=== PATIENT | female | born 1990 ===

== ENCOUNTER → 2016-07-13 | Outpatient (CLI) | payer BC | END | disposition home or self-care (01) | LOC: C.PAPS 12:17 | PROVIDERS: ATTEND Physician Assistant | DX: Z01.419 Encounter for gynecological examination (general) (routine) without abnormal findings (principal) ==

== ENCOUNTER 2020-08-01 07:23 | Inpatient (IN) ==
[2020-08-01] MEDS ORDERED: OXYTOCIN 30 UNITS/500 ML BAG IV PRN ×2 (09:36)
--- NOTE | 2020-08-01 09:47 | History & Physical Report ---
Date of Service August 01, 2020 Assessment & Plan (1) Encounter for induction of labor: Here for IOL secondary to IUGR. PNL: Rh pos, RI, GBS neg, COVID neg Admit, labs, start IV Epidural when desired; anesthesiology consult placed Cervical dilation with mora cath bulb. Proceed with induction of labor per Pitocin augmentation protocol. Anticipate (2) IUGR (intrauterine growth restriction): Admission and Anticipated Discharge Date Admission Date: August 01, 2020 History of Present Illness Primary Care Provider: Sascha Desouza PA-C Grisel Lopez is a 30 y/o female currently at 37+1 WGA with an TEA 08/21/20 as determined by LMP who is here for IOL due to IUGR. Her was complicated by IUGR (MFM reported 12%tile on 06/26) and obesity. No specific complaints or concerns this morning. + contractions; + movement; - fluid loss; - bloody show Had regular appointments with OB. Blood type: O+ Antibody screen: neg Labs 01/15/20 Rubella: immune VDRL/RPR: NR Gonorrhea: neg Chlamydia: neg HIV: neg HbSAg: neg GBS: neg 07/25/20 COVID-19 negative 07/26/20 Other screens: declined all genetic testing Allergies Allergy/AdvReac Type Severity Reaction Status Date / Time Sulfa (Sulfonamide Allergy Intermediate Hives Verified 08/01/20 09:51 Antibiotics) Home Medications Medication Instructions Recorded Confirmed Type prenat.vits,augustina,[id number] 1 tab PO DAILY 08/01/20 08/01/20 History [ Vitamin] Patient History Medical History Coccydynia Oligomenorrhea Radicular pain of sacrum Routine gynecological examination Sacral pain Surgical History H/O wisdom tooth extraction S/P tonsillectomy Family History Aunt Breast cancer Maternal Mother Diabetes Father Hypertension Brother Hypertension Grandmother (Maternal) Uterine cancer Denies family history of Ovarian cancer Prostate cancer Colorectal cancer Social History Smoking Status: Never smoker Hx Alcohol Use: No Hx Substance Use: No Preferred Language: Icelandic Communication Ability: Effective Beliefs That Will Affect Care: None marital status: marital status details: FOB: Ren (33) [phone] Current Living Situation: Spouse Current Living Situation Comment: Ren current occupational status: employed 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 Denies shortness of breath or cough. Denies chest pain. Denies breast pain. Denies dysuria or hematuria. Denies leg pain or leg swelling. Denies headache or changes in vision. Physical Exam Physical Exam: General: Alert, oriented. No acute distress. Cardiac: Regular rate and rhythm, no murmurs/rubs/gallops. Respiratory: Clear to auscultation bilaterally a/p, no wheezes/rales/rhonchi. No increased work of breathing. Symmetrical chest rise. No respiratory distress. Abdomen: Gravid. Vertex position. + heart tones. - palpable contractions. EFW 5-6# Pelvic: Dilation 1 cm; Effacement 50%; Station -[address] Parks External FHT and external uterine monitors used; Category I tracing; moderate FHT variability. Lower Extremities: No lower extremity edema or swelling. No deep calf pain. Satish's negative bilaterally Results & Data ([facility]) Vital Signs (Past 12 Hours) Vital Signs Temp Pulse Resp BP 08/01/20 07:40 36.8 C 20 08/01/20 07:36 84 122/78 Supervising Physician Co-Signing Physician Notes Resident Physician Supervision Note: I interviewed and examined the patient. Discussed with Dr. Lorenz and agree with findings and plan as documented in the note. Any exceptions or clarifications are listed here: 30 y/o G1 at 37 1/7 wga presents for IOL for FGR w/ elevated dopplers. Was first dx with FGR at growth at 31 wks w/ elevated doppler. Subsequent MFM c/s and US demonstrated growth in the 12th%ile. [place] [facility] [place]FW 6% w/ elevated dopplers at 36 wks. Given the elevated dopplers in the setting of FGR, recommendation was for delivery at 37 wks. She then had DVP doppler here that were normal for f/u. M was contacted yesterday due to planned IOL but most recent doppler being normal. They discussed reasonable to proceed with IOL at 37 wks given the known previous abnl dopplers and different sonographers or monitoring next doppler and delivery at that point, and could discuss w/ pt both options. This was discussed w/ pt and she opted for continued IOL. Today, +FM and intermittent ctx. Denies LOF, VB. VSS, SVE /-3 cephalic by sutures. IOL begun with 40 cc mora bulb placement after verbal consent was obtained including risk for AROM. Will start pitocin as well Documented By: Tami Parks MD Resident Activity Tracking Resident Involvement: Resident Care Provided Care Provided: OB Delivery
[2020-08-01 10:05] LABS: Hematocrit (blood only) 37.8 % (37-47); Hemoglobin 13.2 g/dL (12.0-16.0); Mean Corpuscular Hemoglobin 32.2 pg (25-34); Mean Corpuscular Hgb Conc 34.9 g/dL (32-36); Mean Corpuscular Volume 92.2 fL (80-100); Mean Platelet Volume 11.1 fL (7.4-10.4); Platelet Count 210 K/uL (130-400); RDW Standard Deviation 43.6 fL (36.4-46.3); White Blood Count 12.08 K/uL (4.8-10.8)
[2020-08-01] MEDS: LACTATED RINGER'S 1,000 ML IV PRN ×3 (10:08→23:25)
--- NOTE | 2020-08-01 14:23 | Labor Progress Brief Note ---
Date of Service August 01, 2020 Subjective Mora bulb out, pt feeling uncomfortable w/ ctx Assessment & Plan (1) IUGR (intrauterine growth restriction): 30 y/o G1 at 37 1/7 wga presents for IOL for FGR w/ elevated dopplers VSS Fetus cat 1 Labor - s/p mora bulb. Will titrate pit, plan AROM when regular ctx GBS neg Epidural PRN Admission and Anticipated Discharge Date Admission Date: August 01, 2020 Physical Exam Constitutional: WD/WN, vitals as above Respiratory: normal respiratory effort; no respiratory distress and no labored breathing Psychiatric: A+Ox3, euthymic affect Genitourinary: Manual OB Exam: + cervical dilation 3 cm, + cervical effacement 70% and + station high OB Exam Monitor Tracing: + external FHT monitor used, + external uterine monitor used (q3-4 min) and + category I (135/mod/+accel/- decel) Results & Data ([facility]) Vital Signs (Past 12 Hours) Vital Signs Temp Pulse Resp BP 08/01/20 14:18 90 121/83 08/01/20 13:17 98.2 F 73 20 127/75 08/01/20 12:15 71 113/82 08/01/20 11:09 74 103/62 08/01/20 10:08 98.1 F 58 L 20 143/91 H 08/01/20 07:40 98.2 F 20 08/01/20 07:36 84 122/78 Coding Level of Care Code None Diagnoses IUGR (intrauterine growth restriction)
--- NOTE | 2020-08-01 16:33 | Labor Progress Brief Note ---
Date of Service August 01, 2020 Subjective Ctx more uncomfortable Assessment & Plan (1) IUGR (intrauterine growth restriction): 30 y/o G1 at 37 1/7 wga presents for IOL for FGR w/ elevated dopplers VSS Fetus cat 1 Labor - Pit at 14 w/ good ctx pattern, now s/p arom. Continue augmentation GBS neg Epidural PRN Admission and Anticipated Discharge Date Admission Date: August 01, 2020 Physical Exam Constitutional: WD/WN, vitals as above Respiratory: normal respiratory effort; no respiratory distress and no labored breathing Psychiatric: A+Ox3, euthymic affect Genitourinary: Manual OB Exam: + cervical dilation 4 cm, + cervical effacement 70%, + station -2 and + amniotic fluid (AROM clear fluid) OB Exam Monitor Tracing: + external FHT monitor used, + external uterine monitor used (q3) and + category I (140/mod/+accel/-decel) Results & Data ([facility]) Vital Signs (Past 12 Hours) Vital Signs Temp Pulse Resp BP 08/01/20 16:08 97.9 F 76 20 120/73 08/01/20 15:21 84 140/87 08/01/20 14:18 90 121/83 08/01/20 13:17 98.2 F 73 20 127/75 08/01/20 12:15 71 113/82 08/01/20 11:09 74 103/62 08/01/20 10:08 98.1 F 58 L 20 143/91 H 08/01/20 07:40 98.2 F 20 08/01/20 07:36 84 122/78 Coding Level of Care Code None Diagnoses IUGR (intrauterine growth restriction)
[2020-08-01] MEDS ORDERED: diphenhydrAMINE 50 MG/ML VIAL IV PRN (17:56)
[2020-08-01] MEDS ORDERED: NALOXONE HCL 0.4 MG/1 ML VIAL/CARP IV PRN (17:56)
[2020-08-01] MEDS ORDERED: ePHEDrine sulfate 50 MG/ML AMP IV PRN (17:56)
[2020-08-01] MEDS ORDERED: ONDANSETRON INJ 2 MG/ML 2 ML VIAL IV PRN (17:56)
[2020-08-01] MEDS ORDERED: NALOXONE HCL 1 MG in SODIUM CHLORIDE 0.9% 1000ML 1,000 ML IV PRN (17:56)
[2020-08-01] MEDS ORDERED: BUPIVACAINE 0.25% 30 ML VIAL ONE ×2 (17:57→19:39)
[2020-08-01] MEDS ORDERED: ePHEDrine sulfate 50 MG/ML AMP ONE (17:57)
[2020-08-01] MEDS ORDERED: fentaNYL citrate 100 MCG/2 ML VIAL ONE (17:58)
[2020-08-01] MEDS ORDERED: fentaNYL 2MCG/ML ROPIVACAINE 1.25MG/ML 100 ML BAG EPI ONE (17:58)
--- NOTE | 2020-08-01 17:59 | Anesthesiology Consultation ---
Date of Service August 01, 2020 Assessment & Plan (1) Encounter for pre-operative examination: Chart Review Chart Review: Patient NOT seen in Pre Admission Testing and Acceptable Risk for Labor Epidural Consults Requested none History Height/Weight Height: 5 ft 3 in Weight: 98.883 kg Allergies Allergy/AdvReac Type Severity Reaction Status Date / Time Sulfa (Sulfonamide Allergy Intermediate Hives Verified 08/01/20 09:51 Antibiotics) Medications Home Medications Medication Instructions Recorded Confirmed Last Taken prenat.vits,augustina,ixp-[id number] 1 tab PO DAILY 08/01/20 08/01/20 08/01/20 06:00 [ Vitamin] Active Medications Generic Name Dose Route Start Last Admin Trade Name Freq PRN Reason Stop Dose Admin Oxytocin 30 units in 500 mls @ 14 mls/hr 08/01/20 09:36 08/01/20 15:45 Pitocin IV 08/03/20 09:35 0.84 units/hr .Q24H PRN 14 mls/hr Labor Induction/Augmentation Titration Protocol 0.84 UNITS/HR Lactated Ringer's 1,000 mls @ 125 mls/hr 08/01/20 09:36 08/01/20 17:55 Lr IV 08/03/20 09:35 999 mls/hr .Q8H PRN Infusion L&D Protocol Protocol Past Medical History Medical History Coccydynia Oligomenorrhea Radicular pain of sacrum Routine gynecological examination Sacral pain Exercise / Class Metabolic Activity II 4-5 Yardwork/Stairs/Walk up hill Past Family History Family History Aunt Breast cancer Maternal Mother Diabetes Father Hypertension Brother Hypertension Grandmother (Maternal) Uterine cancer Denies family history of Ovarian cancer Prostate cancer Colorectal cancer Past Surgical History Surgical History H/O wisdom tooth extraction S/P tonsillectomy Past Anesthesia History No Hx of Anesthesia Complications and No Family Hx of Anesthesia Complications History of PONV No Hx of PONV and No Hx of Motion Sickness Social History Smoking Status: Never smoker Hx Alcohol Use: No Hx Substance Use: No Physical Exam Vital Signs Last Vital Signs Temp 36.6 C 08/01/20 16:08 Pulse 71 08/01/20 17:52 Resp 20 08/01/20 16:08 BP 136/73 08/01/20 17:51 Pulse Ox 100 08/01/20 17:52 Testing Laboratory Results 08/01/20 09:53
--- NOTE | 2020-08-01 21:56 | Labor Progress Brief Note ---
Date of Service August 01, 2020 Subjective Comfortable w/ epidural Assessment & Plan (1) IUGR (intrauterine growth restriction): 30 y/o G1 at 37 1/7 wga presents for IOL for FGR w/ elevated dopplers VSS Fetus cat 2 Labor - Pit at 20 w/ good ctx pattern, SVE progressed on exam by nursing. Will put IUPC if not progressed with next exam GBS neg Epidural in place, now comfortable Admission and Anticipated Discharge Date Admission Date: August 01, 2020 Physical Exam Constitutional: WD/WN, vitals as above Respiratory: normal respiratory effort; no respiratory distress and no labored breathing Psychiatric: A+Ox3, euthymic affect Genitourinary: OB Exam Monitor Tracing: + external FHT monitor used, + external uterine monitor used (q3-4min) and + category I (130/mod/+accel/intermittent variable decel) 6/80/-2 by nursing Results & Data ([facility]) Vital Signs (Past 12 Hours) Vital Signs Temp Pulse Resp BP Pulse Ox 08/01/20 21:47 71 98 08/01/20 21:44 79 132/78 08/01/20 21:42 77 100 08/01/20 21:39 79 132/72 08/01/20 21:37 68 100 08/01/20 21:33 83 126/64 08/01/20 21:32 85 100 08/01/20 21:28 86 127/67 08/01/20 21:27 69 100 08/01/20 21:24 85 131/70 08/01/20 21:22 82 100 08/01/20 21:20 67 137/68 08/01/20 21:17 71 99 08/01/20 21:13 63 117/64 08/01/20 21:12 65 98 08/01/20 21:09 65 113/63 08/01/20 21:07 73 97 08/01/20 21:04 71 116/62 08/01/20 21:02 76 99 08/01/20 21:00 98.2 F 64 116/66 08/01/20 20:57 74 98 08/01/20 20:54 73 115/64 08/01/20 20:52 70 98 08/01/20 20:50 63 116/62 08/01/20 20:47 62 99 08/01/20 20:45 61 124/59 L 08/01/20 20:42 67 98 08/01/20 20:38 71 123/67 08/01/20 20:37 73 99 08/01/20 20:35 71 127/68 08/01/20 20:32 68 99 08/01/20 20:28 81 124/67 08/01/20 20:27 72 99 08/01/20 20:24 61 120/62 08/01/20 20:22 82 100 08/01/20 20:18 76 124/61 08/01/20 20:17 76 100 08/01/20 20:13 75 120/63 08/01/20 20:12 75 100 08/01/20 20:08 80 120/63 08/01/20 20:07 77 100 08/01/20 20:04 77 115/66 08/01/20 20:02 74 100 08/01/20 19:57 81 131/72 99 08/01/20 19:55 68 124/71 08/01/20 19:53 82 126/77 08/01/20 19:52 71 99 08/01/20 19:51 74 120/74 08/01/20 19:50 81 119/75 08/01/20 19:47 61 131/66 98 08/01/20 19:45 60 121/69 08/01/20 19:43 76 120/68 08/01/20 19:42 88 96 08/01/20 19:37 61 98 08/01/20 19:32 63 97 08/01/20 19:28 60 112/64 08/01/20 19:27 72 98 08/01/20 19:22 67 94 08/01/20 19:21 72 94 08/01/20 19:17 58 L 96 08/01/20 19:12 71 115/64 99 08/01/20 19:07 100 H 99 08/01/20 19:06 98.1 F 88 18 130/71 08/01/20 19:02 76 99 08/01/20 19:01 85 124/71 08/01/20 18:57 69 98 08/01/20 18:56 86 127/69 08/01/20 18:52 79 98 08/01/20 18:51 92 H 126/71 08/01/20 18:47 99 H 98 08/01/20 18:46 89 131/74 08/01/20 18:42 85 123/76 98 08/01/20 18:37 76 100 08/01/20 18:36 96 H 137/85 08/01/20 18:34 96 H 132/82 08/01/20 18:32 100 H 129/79 98 08/01/20 18:30 95 H 131/79 08/01/20 18:28 95 H 138/84 08/01/20 18:27 89 100 08/01/20 18:26 93 H 134/79 08/01/20 18:25 20 08/01/20 18:24 86 130/69 08/01/20 18:22 81 132/75 100 08/01/20 18:20 80 130/73 08/01/20 18:18 82 128/77 08/01/20 18:17 84 99 08/01/20 18:16 73 130/75 08/01/20 18:13 80 124/73 08/01/20 18:12 89 99 08/01/20 18:10 98.1 F 20 08/01/20 18:07 94 H 100 08/01/20 18:02 87 99 08/01/20 17:57 75 98 08/01/20 17:52 71 100 08/01/20 17:51 71 136/73 08/01/20 16:08 97.9 F 76 20 120/73 08/01/20 15:21 84 140/87 08/01/20 14:18 90 121/83 08/01/20 13:17 98.2 F 73 20 127/75 08/01/20 12:15 71 113/82 08/01/20 11:09 74 103/62 08/01/20 10:08 98.1 F 58 L 20 143/91 H Coding Level of Care Code None Diagnoses IUGR (intrauterine growth restriction)
[2020-08-01] MEDS ORDERED: LIDOCAINE/EPINEPHRINE 2% 1:200,000 20 ML SDV ONE (23:09)
[2020-08-01] MEDS ORDERED: ROPIVACAINE 0.5% 5 MG/ML 30 ML VIAL ONE (23:09)
--- NOTE | 2020-08-01 23:16 | Labor Progress Brief Note ---
Date of Service August 01, 2020 Subjective More uncomfortable lying on back, pit at 20 Assessment & Plan (1) IUGR (intrauterine growth restriction): 30 y/o G1 at 37 1/7 wga presents for IOL for FGR w/ elevated dopplers VSS Fetus cat 2 but reassuring Labor - Pit at 20 w/ good ctx pattern, cervix 5/75/-2 on my exam. IUPC placed to titrate pitocin GBS neg Epidural in place, anesthesia called to try to get patient more comfortable Admission and Anticipated Discharge Date Admission Date: August 01, 2020 Physical Exam Constitutional: WD/WN, vitals as above Respiratory: normal respiratory effort; no respiratory distress and no labored breathing Psychiatric: A+Ox3, euthymic affect Genitourinary: Manual OB Exam: + cervical dilation 5 cm, + cervical effacement 70% and + station -2 OB Exam Monitor Tracing: + external FHT monitor used, + external uterine monitor used (q3-4min) and + category I (130/mod/+accel/intermittent variable decel) Results & Data ([facility]) Vital Signs (Past 12 Hours) Vital Signs Temp Pulse Resp BP Pulse Ox 08/01/20 23:12 86 124/71 08/01/20 23:08 72 105/71 100 08/01/20 23:04 96 H 99/71 L 08/01/20 23:02 72 100 08/01/20 23:00 98.2 F 18 08/01/20 22:59 89 125/77 08/01/20 22:57 75 100 08/01/20 22:52 99 H 98 08/01/20 22:49 82 134/75 08/01/20 22:47 74 98 08/01/20 22:43 83 134/72 08/01/20 22:42 73 98 08/01/20 22:38 77 130/75 08/01/20 22:37 73 99 08/01/20 22:33 70 125/76 08/01/20 22:32 65 99 08/01/20 22:28 70 127/80 08/01/20 22:27 71 99 08/01/20 22:25 85 131/78 08/01/20 22:22 64 98 08/01/20 22:19 77 124/71 08/01/20 22:17 67 99 04/22/21 22:14 75 129/75 08/01/20 22:12 76 99 08/01/20 22:09 72 131/75 08/01/20 22:07 69 98 08/01/20 22:04 90 127/73 08/01/20 22:02 81 98 21 21:59 81 136/75 08/01/20 21:57 70 99 08/01/20 21:54 73 134/72 08/01/20 21:52 64 98 08/01/20 21:50 61 119/69 08/01/20 21:47 71 98 08/01/20 21:44 79 132/78 08/01/20 21:42 77 100 08/01/20 21:39 79 132/72 08/01/20 21:37 68 100 08/01/20 21:33 83 126/64 08/01/20 21:32 85 100 08/01/20 21:28 86 127/67 08/01/20 21:27 69 100 08/01/20 21:24 85 131/70 08/01/20 21:22 82 100 08/01/20 21:20 67 137/68 08/01/20 21:17 71 99 08/01/20 21:13 63 117/64 08/01/20 21:12 65 98 08/01/20 21:09 65 113/63 08/01/20 21:07 73 97 08/01/20 21:04 71 116/62 08/01/20 21:02 76 99 08/01/20 21:00 98.2 F 64 116/66 08/01/20 20:57 74 98 08/01/20 20:54 73 115/64 21 20:52 70 98 21 20:50 63 116/62 21 20:47 62 99 22/21 20:45 61 124/59 L 2221 20:42 67 98 2221 20:38 71 123/67 2221 20:37 73 99 2221 20:35 71 127/68 22/21 20:32 68 99 22/21 20:28 81 124/67 22/21 20:27 72 99 2221 20:24 61 120/62 22/21 20:22 82 100 08/01/20 20:18 76 124/61 08/01/20 20:17 76 100 08/01/20 20:13 75 120/63 08/01/20 20:12 75 100 08/01/20 20:08 80 120/63 08/01/20 20:07 77 100 08/01/20 20:04 77 115/66 08/01/20 20:02 74 100 08/01/20 19:57 81 131/72 99 08/01/20 19:55 68 124/71 08/01/20 19:53 82 126/77 08/01/20 19:52 71 99 08/01/20 19:51 74 120/74 08/01/20 19:50 81 119/75 08/01/20 19:47 61 131/66 98 08/01/20 19:45 60 121/69 08/01/20 19:43 76 120/68 08/01/20 19:42 88 96 08/01/20 19:37 61 98 08/01/20 19:32 63 97 08/01/20 19:28 60 112/64 08/01/20 19:27 72 98 08/01/20 19:22 67 94 08/01/20 19:21 72 94 08/01/20 19:17 58 L 96 08/01/20 19:12 71 115/64 99 08/01/20 19:07 100 H 99 08/01/20 19:06 98.1 F 88 18 130/71 08/01/20 19:02 76 99 08/01/20 19:01 85 124/71 08/01/20 18:57 69 98 08/01/20 18:56 86 127/69 08/01/20 18:52 79 98 08/01/20 18:51 92 H 126/71 08/01/20 18:47 99 H 98 08/01/20 18:46 89 131/74 08/01/20 18:42 85 123/76 98 08/01/20 18:37 76 100 08/01/20 18:36 96 H 137/85 08/01/20 18:34 96 H 132/82 08/01/20 18:32 100 H 129/79 98 08/01/20 18:30 95 H 131/79 08/01/20 18:28 95 H 138/84 08/01/20 18:27 89 100 08/01/20 18:26 93 H 134/79 08/01/20 18:25 20 08/01/20 18:24 86 130/69 08/01/20 18:22 81 132/75 100 08/01/20 18:20 80 130/73 08/01/20 18:18 82 128/77 08/01/20 18:17 84 99 08/01/20 18:16 73 130/75 08/01/20 18:13 80 124/73 08/01/20 18:12 89 99 08/01/20 18:10 98.1 F 20 08/01/20 18:07 94 H 100 08/01/20 18:02 87 99 08/01/20 17:57 75 98 08/01/20 17:52 71 100 08/01/20 17:51 71 136/73 08/01/20 16:08 97.9 F 76 20 120/73 08/01/20 15:21 84 140/87 08/01/20 14:18 90 121/83 08/01/20 13:17 98.2 F 73 20 127/75 08/01/20 12:15 71 113/82 Coding Level of Care Code None Diagnoses IUGR (intrauterine growth restriction)
[2020-08-01] MEDS ORDERED: NURSING L&D Epidural Breakthrough Pain Update ONE (23:57)
[2020-08-02] MEDS: fentaNYL 2MCG/ML ROPIVACAINE 1.25MG/ML 100 ML BAG EPI PRN ×3 (01:20→11:58)
--- NOTE | 2020-08-02 01:34 | Labor Progress Brief Note ---
Date of Service August 02, 2020 Subjective Much more comfortable w/ epidural rebolus Assessment & Plan (1) IUGR (intrauterine growth restriction): 30 y/o G1 at 37 2/7 wga presents for IOL for FGR w/ elevated dopplers VSS Fetus cat 2 but reassuring Labor - Pit at 20 w/ adequate ctx. Slightly lower station. Will give pit break and restart after 1 hr GBS neg Epidural in place Admission and Anticipated Discharge Date Admission Date: August 01, 2020 Physical Exam Constitutional: WD/WN, vitals as above Respiratory: normal respiratory effort; no respiratory distress and no labored breathing Psychiatric: A+Ox3, euthymic affect Genitourinary: Manual OB Exam: + cervical dilation 5 cm, + cervical effacement 70% and + station -1 OB Exam Monitor Tracing: + external FHT monitor used, + external uterine monitor used (q3-4min) and + category II (130/mod/+accel/intermit variables) Results & Data ([facility]) Vital Signs (Past 12 Hours) Vital Signs Temp Pulse Resp BP Pulse Ox 08/02/20 01:28 103 H 96 08/02/20 01:24 96 H 125/75 08/02/20 01:23 100 H 97 08/02/20 01:18 92 H 97 08/02/20 01:13 106 H 98 08/02/20 01:10 90 128/78 08/02/20 01:08 94 H 97 08/02/20 01:03 90 97 08/02/20 00:58 100 H 98 08/02/20 00:55 87 119/71 08/02/20 00:53 87 96 08/02/20 00:48 84 96 08/02/20 00:43 80 97 08/02/20 00:39 96 H 127/68 08/02/20 00:38 98 H 97 08/02/20 00:33 80 96 08/02/20 00:28 84 96 08/02/20 00:24 85 124/66 08/02/20 00:23 88 97 08/02/20 00:18 93 H 124/67 97 08/02/20 00:13 96 H 125/72 98 08/02/20 00:09 96 H 126/70 08/02/20 00:08 87 98 08/02/20 00:04 90 126/66 08/02/20 00:03 100 H 97 08/01/20 23:58 107 H 129/76 98 08/01/20 23:53 108 H 105/55 L 100 08/01/20 23:51 95 H 108/55 L 08/01/20 23:49 94 H 115/58 L 08/01/20 23:48 86 100 08/01/20 23:47 92 H 116/59 L 08/01/20 23:45 82 112/55 L 08/01/20 23:43 88 107/59 L 100 08/01/20 23:41 99 H 110/59 L 08/01/20 23:39 83 116/62 08/01/20 23:38 88 100 08/01/20 23:37 88 119/61 08/01/20 23:35 91 H 105/58 L 08/01/20 23:33 85 101/56 L 99 08/01/20 23:31 84 110/57 L 08/01/20 23:29 88 111/58 L 08/01/20 23:28 89 100 08/01/20 23:27 86 109/55 L 08/01/20 23:25 72 115/58 L 08/01/20 23:23 76 120/73 98 08/01/20 23:21 75 123/74 08/01/20 23:19 72 115/69 08/01/20 23:18 85 98 08/01/20 23:17 69 118/72 08/01/20 23:15 67 120/71 08/01/20 23:13 84 123/71 100 08/01/20 23:12 86 124/71 08/01/20 23:08 72 105/71 100 08/01/20 23:04 96 H 99/71 L 08/01/20 23:02 72 100 08/01/20 23:00 98.2 F 18 08/01/20 22:59 89 125/77 08/01/20 22:57 75 100 08/01/20 22:52 99 H 98 08/01/20 22:49 82 134/75 08/01/20 22:47 74 98 08/01/20 22:43 83 134/72 08/01/20 22:42 73 98 08/01/20 22:38 77 130/75 08/01/20 22:37 73 99 08/01/20 22:33 70 125/76 08/01/20 22:32 65 99 08/01/20 22:28 70 127/80 08/01/20 22:27 71 99 08/01/20 22:25 85 131/78 08/01/20 22:22 64 98 08/01/20 22:19 77 124/71 08/01/20 22:17 67 99 08/01/20 22:14 75 129/75 08/01/20 22:12 76 99 08/01/20 22:09 72 131/75 08/01/20 22:07 69 98 08/01/20 22:04 90 127/73 08/01/20 22:02 81 98 08/01/20 21:59 81 136/75 08/01/20 21:57 70 99 08/01/20 21:54 73 134/72 08/01/20 21:52 64 98 08/01/20 21:50 61 119/69 08/01/20 21:47 71 98 08/01/20 21:44 79 132/78 08/01/20 21:42 77 100 08/01/20 21:39 79 132/72 08/01/20 21:37 68 100 08/01/20 21:33 83 126/64 08/01/20 21:32 85 100 08/01/20 21:28 86 127/67 08/01/20 21:27 69 100 08/01/20 21:24 85 131/70 08/01/20 21:22 82 100 08/01/20 21:20 67 137/68 08/01/20 21:17 71 99 08/01/20 21:13 63 117/64 2221 21:12 65 98 22 21:09 65 113/63 08/01/20 21:07 73 97 22 21:04 71 116/62 22 21:02 76 99 08/01/20 21:00 98.2 F 64 116/66 2221 20:57 74 98 2221 20:54 73 115/64 2221 20:52 70 98 2221 20:50 63 116/62 2221 20:47 62 99 2221 20:45 61 124/59 L 08/01/20 20:42 67 98 08/01/20 20:38 71 123/67 08/01/20 20:37 73 99 08/01/20 20:35 71 127/68 08/01/20 20:32 68 99 08/01/20 20:28 81 124/67 08/01/20 20:27 72 99 08/01/20 20:24 61 120/62 08/01/20 20:22 82 100 08/01/20 20:18 76 124/61 08/01/20 20:17 76 100 08/01/20 20:13 75 120/63 08/01/20 20:12 75 100 08/01/20 20:08 80 120/63 08/01/20 20:07 77 100 08/01/20 20:04 77 115/66 08/01/20 20:02 74 100 08/01/20 19:57 81 131/72 99 08/01/20 19:55 68 124/71 08/01/20 19:53 82 126/77 08/01/20 19:52 71 99 08/01/20 19:51 74 120/74 08/01/20 19:50 81 119/75 08/01/20 19:47 61 131/66 98 08/01/20 19:45 60 121/69 08/01/20 19:43 76 120/68 08/01/20 19:42 88 96 08/01/20 19:37 61 98 08/01/20 19:32 63 97 08/01/20 19:28 60 112/64 08/01/20 19:27 72 98 08/01/20 19:22 67 94 08/01/20 19:21 72 94 08/01/20 19:17 58 L 96 08/01/20 19:12 71 115/64 99 08/01/20 19:07 100 H 99 08/01/20 19:06 98.1 F 88 18 130/71 08/01/20 19:02 76 99 08/01/20 19:01 85 124/71 08/01/20 18:57 69 98 08/01/20 18:56 86 127/69 08/01/20 18:52 79 98 08/01/20 18:51 92 H 126/71 08/01/20 18:47 99 H 98 08/01/20 18:46 89 131/74 08/01/20 18:42 85 123/76 98 08/01/20 18:37 76 100 08/01/20 18:36 96 H 137/85 08/01/20 18:34 96 H 132/82 08/01/20 18:32 100 H 129/79 98 08/01/20 18:30 95 H 131/79 08/01/20 18:28 95 H 138/84 08/01/20 18:27 89 100 08/01/20 18:26 93 H 134/79 08/01/20 18:25 20 08/01/20 18:24 86 130/69 08/01/20 18:22 81 132/75 100 08/01/20 18:20 80 130/73 08/01/20 18:18 82 128/77 08/01/20 18:17 84 99 08/01/20 18:16 73 130/75 08/01/20 18:13 80 124/73 08/01/20 18:12 89 99 08/01/20 18:10 98.1 F 20 08/01/20 18:07 94 H 100 08/01/20 18:02 87 99 08/01/20 17:57 75 98 08/01/20 17:52 71 100 08/01/20 17:51 71 136/73 08/01/20 16:08 97.9 F 76 20 120/73 08/01/20 15:21 84 140/87 08/01/20 14:18 90 121/83 Coding Level of Care Code None Diagnoses IUGR (intrauterine growth restriction)
--- NOTE | 2020-08-02 05:22 | Communication Note ---
Date of Service: August 02, 2020 Placed initial epidural around 1800 on 08/01/20. Patient c/o slight right sided pain not long after epidural placement so put her right side down and bolused additional 6ml of 0.25% bupivicaine with good relief. Around midnight, called as patient having increasing pain and again endorsed it being somewhat right sided. Pulled epidural catheter back 1-2cm and resecured. Wanted to ensure epidural was working and also wanted her to get some rest so bolused a total of 8ml of 1% lidocaine with 0.25% ropivicaine. Patient became very numb and was able to sleep until 0500. Around this time, she again c/o increasing pain. She was again bolused with the previous mentioned lido/rop mix but a total volume of 10ml. Informed patient that we would likely not continue to bolus her at such short intervals so if she continues to make very slow change and it seems likely that she will be laboring for quite some time that we would consider replacing the epidural to see if maybe we can obtain better pain relief for her. She voiced understanding and upon leaving her room she stated both legs were feeling very heavy and her pain was decreasing. VSS. No complications.
[2020-08-02] MEDS ORDERED: fentaNYL 2MCG/ML ROPIVACAINE 1.25MG/ML 100 ML BAG EPI ONE ×2 (06:11→11:45)
[2020-08-02] MEDS ORDERED: SODIUM CHLORIDE 0.9% INJ 10 ML VIAL ONE ×2 (06:11→11:44)
[2020-08-02] MEDS ORDERED: ePHEDrine sulfate 50 MG/ML AMP ONE ×2 (06:11→11:44)
[2020-08-02] MEDS ORDERED: fentaNYL citrate 100 MCG/2 ML VIAL ONE ×3 (06:11→11:44)
[2020-08-02] MEDS ORDERED: BUPIVACAINE 0.25% 30 ML VIAL ONE ×2 (06:11→11:44)
--- NOTE | 2020-08-02 06:53 | Communication Note ---
Date of Service: August 02, 2020 Replaced patient's epidural at 0630 this morning. Easy placement and patient very comfortable (not feeling her contractions) and satisfied. No complications.
--- NOTE | 2020-08-02 07:02 | Labor Progress Brief Note ---
Date of Service August 02, 2020 Subjective Epidural redone and pt much more comfortable Assessment & Plan (1) IUGR (intrauterine growth restriction): 30 y/o G1 at 37 2/7 wga presents for IOL for FGR w/ elevated dopplers VSS Fetus cat 2 but reassuring Labor - Pit at 12 now after break, MVUs not yet adequate. Able to go up more now that pt is more comfortable w/ new epidural GBS neg Epidural in place Admission and Anticipated Discharge Date Admission Date: August 01, 2020 Physical Exam Constitutional: WD/WN, vitals as above Respiratory: normal respiratory effort; no respiratory distress and no labored breathing Psychiatric: A+Ox3, euthymic affect Genitourinary: Manual OB Exam: + cervical dilation 5 cm, + cervical effacement 70% and + station -1 OB Exam Monitor Tracing: + external FHT monitor used, + intra-uterine pressure catheter used (q5min, MVUs not adequate) and + category II (130/mod/+accel/intermit variables) Results & Data ([facility]) Vital Signs (Past 12 Hours) Vital Signs Temp Pulse Resp BP Pulse Ox 08/02/20 06:58 88 97 08/02/20 06:56 89 120/64 08/02/20 06:53 92 H 98 08/02/20 06:48 86 108/57 L 98 08/02/20 06:46 85 108/57 L 08/02/20 06:44 89 111/56 L 08/02/20 06:43 93 H 98 08/02/20 06:42 91 H 110/56 L 08/02/20 06:40 85 108/58 L 08/02/20 06:38 81 110/60 98 08/02/20 06:36 82 112/64 08/02/20 06:34 75 119/67 08/02/20 06:33 94 H 99 08/02/20 06:32 85 126/71 08/02/20 06:28 93 H 99 08/02/20 06:23 95 H 99 08/02/20 06:21 91 H 131/69 93 08/02/20 06:18 87 98 08/02/20 06:13 97 H 97 08/02/20 06:10 82 94 08/02/20 06:08 95 H 99 08/02/20 06:06 87 133/71 08/02/20 06:03 97 H 97 08/02/20 05:58 79 95 08/02/20 05:54 81 94 08/02/20 05:53 89 99 08/02/20 05:50 96 H 130/80 08/02/20 05:48 81 95 08/02/20 05:47 81 93 08/02/20 05:43 87 94 08/02/20 05:40 84 94 08/02/20 05:38 89 96 08/02/20 05:36 85 128/77 08/02/20 05:33 80 98 08/02/20 05:29 92 H 94 08/02/20 05:28 98 H 97 08/02/20 05:23 81 93 08/02/20 05:20 98.2 F 08/02/20 05:18 84 134/79 100 08/02/20 05:16 87 134/81 08/02/20 05:14 82 129/76 08/02/20 05:13 79 99 08/02/20 05:12 77 134/80 08/02/20 05:10 139/85 08/02/20 05:08 85 135/82 100 08/02/20 05:06 87 133/80 08/02/20 05:04 85 130/80 08/02/20 05:03 91 H 99 08/02/20 04:58 81 97 08/02/20 04:56 78 133/78 08/02/20 04:53 78 98 08/02/20 04:48 83 99 08/02/20 04:43 88 100 08/02/20 04:39 91 H 119/67 08/02/20 04:38 92 H 97 08/02/20 04:33 86 95 08/02/20 04:28 73 97 08/02/20 04:24 82 122/66 08/02/20 04:23 81 98 08/02/20 04:18 74 97 08/02/20 04:13 80 97 08/02/20 04:10 77 118/62 08/02/20 04:08 80 99 08/02/20 04:03 78 97 08/02/20 03:58 79 97 08/02/20 03:54 83 119/69 08/02/20 03:53 78 97 08/02/20 03:48 77 97 08/02/20 03:43 74 96 08/02/20 03:39 80 120/67 08/02/20 03:38 84 97 08/02/20 03:33 94 H 97 08/02/20 03:28 106 H 99 08/02/20 03:24 81 126/79 08/02/20 03:23 72 97 08/02/20 03:18 92 H 96 08/02/20 03:13 74 95 08/02/20 03:09 98.2 F 88 118/74 08/02/20 03:08 78 96 08/02/20 03:03 76 96 08/02/20 02:58 75 96 08/02/20 02:56 87 127/72 08/02/20 02:53 82 97 08/02/20 02:48 76 97 08/02/20 02:43 73 97 08/02/20 02:39 95 H 125/74 08/02/20 02:38 98 H 97 08/02/20 02:33 81 96 08/02/20 02:28 86 98 08/02/20 02:25 90 93 08/02/20 02:24 83 122/75 08/02/20 02:23 91 H 97 08/02/20 02:18 80 97 08/02/20 02:13 95 H 97 08/02/20 02:09 85 119/73 08/02/20 02:08 81 97 08/02/20 02:03 83 97 08/02/20 01:58 78 96 08/02/20 01:54 72 125/72 08/02/20 01:53 79 97 08/02/20 01:48 93 H 96 08/02/20 01:43 77 97 08/02/20 01:39 89 116/69 08/02/20 01:38 88 97 08/02/20 01:33 94 H 97 08/02/20 01:28 103 H 96 08/02/20 01:24 96 H 125/75 08/02/20 01:23 100 H 97 08/02/20 01:18 92 H 97 08/02/20 01:13 106 H 98 08/02/20 01:10 98.2 F 90 128/78 08/02/20 01:08 94 H 97 08/02/20 01:03 90 97 08/02/20 00:58 100 H 98 08/02/20 00:55 87 119/71 08/02/20 00:53 87 96 08/02/20 00:48 84 96 08/02/20 00:43 80 97 08/02/20 00:39 96 H 127/68 08/02/20 00:38 98 H 97 08/02/20 00:33 80 96 08/02/20 00:28 84 96 08/02/20 00:24 85 124/66 08/02/20 00:23 88 97 08/02/20 00:18 93 H 124/67 97 08/02/20 00:13 96 H 125/72 98 08/02/20 00:09 96 H 126/70 08/02/20 00:08 87 98 08/02/20 00:04 90 126/66 08/02/20 00:03 100 H 97 08/01/20 23:58 107 H 129/76 98 08/01/20 23:53 108 H 105/55 L 100 08/01/20 23:51 95 H 108/55 L 08/01/20 23:49 94 H 115/58 L 08/01/20 23:48 86 100 08/01/20 23:47 92 H 116/59 L 08/01/20 23:45 82 112/55 L 08/01/20 23:43 88 107/59 L 100 08/01/20 23:41 99 H 110/59 L 08/01/20 23:39 83 116/62 08/01/20 23:38 88 100 08/01/20 23:37 88 119/61 08/01/20 23:35 91 H 105/58 L 08/01/20 23:33 85 101/56 L 99 08/01/20 23:31 84 110/57 L 08/01/20 23:29 88 111/58 L 08/01/20 23:28 89 100 08/01/20 23:27 86 109/55 L 08/01/20 23:25 72 115/58 L 08/01/20 23:23 76 120/73 98 08/01/20 23:21 75 123/74 08/01/20 23:19 72 115/69 08/01/20 23:18 85 98 08/01/20 23:17 69 118/72 08/01/20 23:15 67 120/71 08/01/20 23:13 84 123/71 100 08/01/20 23:12 86 124/71 08/01/20 23:08 72 105/71 100 08/01/20 23:04 96 H 99/71 L 08/01/20 23:02 72 100 08/01/20 23:00 98.2 F 18 08/01/20 22:59 89 125/77 08/01/20 22:57 75 100 08/01/20 22:52 99 H 98 08/01/20 22:49 82 134/75 08/01/20 22:47 74 98 08/01/20 22:43 83 134/72 08/01/20 22:42 73 98 08/01/20 22:38 77 130/75 08/01/20 22:37 73 99 08/01/20 22:33 70 125/76 08/01/20 22:32 65 99 08/01/20 22:28 70 127/80 08/01/20 22:27 71 99 08/01/20 22:25 85 131/78 08/01/20 22:22 64 98 08/01/20 22:19 77 124/71 08/01/20 22:17 67 99 08/01/20 22:14 75 129/75 08/01/20 22:12 76 99 08/01/20 22:09 72 131/75 08/01/20 22:07 69 98 08/01/20 22:04 90 127/73 08/01/20 22:02 81 98 08/01/20 21:59 81 136/75 08/01/20 21:57 70 99 08/01/20 21:54 73 134/72 08/01/20 21:52 64 98 08/01/20 21:50 61 119/69 08/01/20 21:47 71 98 08/01/20 21:44 79 132/78 08/01/20 21:42 77 100 08/01/20 21:39 79 132/72 08/01/20 21:37 68 100 08/01/20 21:33 83 126/64 08/01/20 21:32 85 100 08/01/20 21:28 86 127/67 08/01/20 21:27 69 100 08/01/20 21:24 85 131/70 08/01/20 21:22 82 100 08/01/20 21:20 67 137/68 08/01/20 21:17 71 99 08/01/20 21:13 63 117/64 08/01/20 21:12 65 98 08/01/20 21:09 65 113/63 08/01/20 21:07 73 97 08/01/20 21:04 71 116/62 08/01/20 21:02 76 99 08/01/20 21:00 98.2 F 64 116/66 08/01/20 20:57 74 98 08/01/20 20:54 73 115/64 08/01/20 20:52 70 98 08/01/20 20:50 63 116/62 08/01/20 20:47 62 99 08/01/20 20:45 61 124/59 L 08/01/20 20:42 67 98 08/01/20 20:38 71 123/67 08/01/20 20:37 73 99 08/01/20 20:35 71 127/68 08/01/20 20:32 68 99 08/01/20 20:28 81 124/67 08/01/20 20:27 72 99 08/01/20 20:24 61 120/62 08/01/20 20:22 82 100 08/01/20 20:18 76 124/61 08/01/20 20:17 76 100 08/01/20 20:13 75 120/63 08/01/20 20:12 75 100 08/01/20 20:08 80 120/63 08/01/20 20:07 77 100 08/01/20 20:04 77 115/66 08/01/20 20:02 74 100 08/01/20 19:57 81 131/72 99 08/01/20 19:55 68 124/71 08/01/20 19:53 82 126/77 08/01/20 19:52 71 99 08/01/20 19:51 74 120/74 08/01/20 19:50 81 119/75 08/01/20 19:47 61 131/66 98 08/01/20 19:45 60 121/69 08/01/20 19:43 76 120/68 08/01/20 19:42 88 96 08/01/20 19:37 61 98 08/01/20 19:32 63 97 08/01/20 19:28 60 112/64 08/01/20 19:27 72 98 08/01/20 19:22 67 94 08/01/20 19:21 72 94 08/01/20 19:17 58 L 96 08/01/20 19:12 71 115/64 99 08/01/20 19:07 100 H 99 08/01/20 19:06 98.1 F 88 18 130/71 08/01/20 19:02 76 99 08/01/20 19:01 85 124/71 Coding Level of Care Code None Diagnoses IUGR (intrauterine growth restriction)
--- NOTE | 2020-08-02 07:46 | Labor Progress Brief Note ---
Date of Service August 02, 2020 Subjective Comfortable. Assessment & Plan (1) IUGR (intrauterine growth restriction): (2) Encounter for induction of labor: Admission and Anticipated Discharge Date Admission Date: August 01, 2020 Patient now comfortable so increase pitocin to get adequate contraction pattern. Fetus currently category one and reassuring. Physical Exam Constitutional: WD/WN, vitals as above Psychiatric: A+Ox3, euthymic affect Genitourinary: cx--5/90/-2, some molding toco--q3-6, pit at 14 efm--130s wtih mod variability, accels to 160s, no decels Results & Data ([facility]) Vital Signs (Past 12 Hours) Vital Signs Temp Pulse Resp BP Pulse Ox 08/02/20 07:38 71 100 08/02/20 07:37 64 97/54 L 08/02/20 07:33 80 100 08/02/20 07:28 80 100 08/02/20 07:23 90 102/50 L 100 08/02/20 07:18 80 99 08/02/20 07:13 91 H 100 08/02/20 07:10 36.7 C 83 18 97/52 L 99 08/02/20 07:08 85 99 08/02/20 07:07 83 97/52 L 08/02/20 07:05 78 106/54 L 08/02/20 07:03 88 98 08/02/20 07:00 85 105/56 L 08/02/20 06:58 88 97 08/02/20 06:56 89 120/64 08/02/20 06:53 92 H 98 08/02/20 06:48 86 108/57 L 98 08/02/20 06:46 85 108/57 L 08/02/20 06:44 89 111/56 L 08/02/20 06:43 93 H 98 08/02/20 06:42 91 H 110/56 L 08/02/20 06:40 85 108/58 L 08/02/20 06:38 81 110/60 98 08/02/20 06:36 82 112/64 08/02/20 06:34 75 119/67 08/02/20 06:33 94 H 99 08/02/20 06:32 85 126/71 08/02/20 06:28 93 H 99 08/02/20 06:23 95 H 99 08/02/20 06:21 91 H 131/69 93 08/02/20 06:18 87 98 08/02/20 06:13 97 H 97 08/02/20 06:10 82 94 08/02/20 06:08 95 H 99 08/02/20 06:06 87 133/71 08/02/20 06:03 97 H 97 08/02/20 05:58 79 95 08/02/20 05:54 81 94 08/02/20 05:53 89 99 08/02/20 05:50 96 H 130/80 08/02/20 05:48 81 95 08/02/20 05:47 81 93 08/02/20 05:43 87 94 08/02/20 05:40 84 94 08/02/20 05:38 89 96 08/02/20 05:36 85 128/77 08/02/20 05:33 80 98 08/02/20 05:29 92 H 94 08/02/20 05:28 98 H 97 08/02/20 05:23 81 93 08/02/20 05:20 36.8 C 08/02/20 05:18 84 134/79 100 08/02/20 05:16 87 134/81 08/02/20 05:14 82 129/76 08/02/20 05:13 79 99 08/02/20 05:12 77 134/80 08/02/20 05:10 139/85 08/02/20 05:08 85 135/82 100 08/02/20 05:06 87 133/80 08/02/20 05:04 85 130/80 08/02/20 05:03 91 H 99 08/02/20 04:58 81 97 08/02/20 04:56 78 133/78 08/02/20 04:53 78 98 08/02/20 04:48 83 99 08/02/20 04:43 88 100 08/02/20 04:39 91 H 119/67 08/02/20 04:38 92 H 97 08/02/20 04:33 86 95 08/02/20 04:28 73 97 08/02/20 04:24 82 122/66 08/02/20 04:23 81 98 08/02/20 04:18 74 97 08/02/20 04:13 80 97 08/02/20 04:10 77 118/62 08/02/20 04:08 80 99 08/02/20 04:03 78 97 08/02/20 03:58 79 97 08/02/20 03:54 83 119/69 08/02/20 03:53 78 97 08/02/20 03:48 77 97 08/02/20 03:43 74 96 08/02/20 03:39 80 120/67 08/02/20 03:38 84 97 08/02/20 03:33 94 H 97 08/02/20 03:28 106 H 99 08/02/20 03:24 81 126/79 08/02/20 03:23 72 97 08/02/20 03:18 92 H 96 08/02/20 03:13 74 95 08/02/20 03:09 36.8 C 88 118/74 08/02/20 03:08 78 96 08/02/20 03:03 76 96 08/02/20 02:58 75 96 08/02/20 02:56 87 127/72 08/02/20 02:53 82 97 08/02/20 02:48 76 97 08/02/20 02:43 73 97 08/02/20 02:39 95 H 125/74 08/02/20 02:38 98 H 97 08/02/20 02:33 81 96 08/02/20 02:28 86 98 08/02/20 02:25 90 93 08/02/20 02:24 83 122/75 08/02/20 02:23 91 H 97 08/02/20 02:18 80 97 08/02/20 02:13 95 H 97 08/02/20 02:09 85 119/73 08/02/20 02:08 81 97 08/02/20 02:03 83 97 08/02/20 01:58 78 96 08/02/20 01:54 72 125/72 08/02/20 01:53 79 97 08/02/20 01:48 93 H 96 08/02/20 01:43 77 97 08/02/20 01:39 89 116/69 08/02/20 01:38 88 97 08/02/20 01:33 94 H 97 08/02/20 01:28 103 H 96 08/02/20 01:24 96 H 125/75 08/02/20 01:23 100 H 97 08/02/20 01:18 92 H 97 08/02/20 01:13 106 H 98 08/02/20 01:10 36.8 C 90 128/78 08/02/20 01:08 94 H 97 08/02/20 01:03 90 97 08/02/20 00:58 100 H 98 08/02/20 00:55 87 119/71 08/02/20 00:53 87 96 08/02/20 00:48 84 96 08/02/20 00:43 80 97 08/02/20 00:39 96 H 127/68 08/02/20 00:38 98 H 97 08/02/20 00:33 80 96 08/02/20 00:28 84 96 08/02/20 00:24 85 124/66 08/02/20 00:23 88 97 08/02/20 00:18 93 H 124/67 97 08/02/20 00:13 96 H 125/72 98 08/02/20 00:09 96 H 126/70 08/02/20 00:08 87 98 08/02/20 00:04 90 126/66 08/02/20 00:03 100 H 97 08/01/20 23:58 107 H 129/76 98 08/01/20 23:53 108 H 105/55 L 100 08/01/20 23:51 95 H 108/55 L 08/01/20 23:49 94 H 115/58 L 08/01/20 23:48 86 100 08/01/20 23:47 92 H 116/59 L 08/01/20 23:45 82 112/55 L 08/01/20 23:43 88 107/59 L 100 08/01/20 23:41 99 H 110/59 L 08/01/20 23:39 83 116/62 08/01/20 23:38 88 100 08/01/20 23:37 88 119/61 08/01/20 23:35 91 H 105/58 L 08/01/20 23:33 85 101/56 L 99 08/01/20 23:31 84 110/57 L 08/01/20 23:29 88 111/58 L 08/01/20 23:28 89 100 08/01/20 23:27 86 109/55 L 08/01/20 23:25 72 115/58 L 08/01/20 23:23 76 120/73 98 08/01/20 23:21 75 123/74 08/01/20 23:19 72 115/69 08/01/20 23:18 85 98 08/01/20 23:17 69 118/72 08/01/20 23:15 67 120/71 08/01/20 23:13 84 123/71 100 08/01/20 23:12 86 124/71 08/01/20 23:08 72 105/71 100 08/01/20 23:04 96 H 99/71 L 08/01/20 23:02 72 100 08/01/20 23:00 36.8 C 18 08/01/20 22:59 89 125/77 08/01/20 22:57 75 100 08/01/20 22:52 99 H 98 08/01/20 22:49 82 134/75 08/01/20 22:47 74 98 08/01/20 22:43 83 134/72 08/01/20 22:42 73 98 08/01/20 22:38 77 130/75 08/01/20 22:37 73 99 08/01/20 22:33 70 125/76 08/01/20 22:32 65 99 08/01/20 22:28 70 127/80 08/01/20 22:27 71 99 08/01/20 22:25 85 131/78 08/01/20 22:22 64 98 08/01/20 22:19 77 124/71 08/01/20 22:17 67 99 08/01/20 22:14 75 129/75 08/01/20 22:12 76 99 08/01/20 22:09 72 131/75 08/01/20 22:07 69 98 08/01/20 22:04 90 127/73 08/01/20 22:02 81 98 08/01/20 21:59 81 136/75 08/01/20 21:57 70 99 08/01/20 21:54 73 134/72 08/01/20 21:52 64 98 08/01/20 21:50 61 119/69 08/01/20 21:47 71 98 08/01/20 21:44 79 132/78 08/01/20 21:42 77 100 08/01/20 21:39 79 132/72 08/01/20 21:37 68 100 08/01/20 21:33 83 126/64 08/01/20 21:32 85 100 08/01/20 21:28 86 127/67 08/01/20 21:27 69 100 08/01/20 21:24 85 131/70 08/01/20 21:22 82 100 08/01/20 21:20 67 137/68 08/01/20 21:17 71 99 08/01/20 21:13 63 117/64 08/01/20 21:12 65 98 08/01/20 21:09 65 113/63 08/01/20 21:07 73 97 08/01/20 21:04 71 116/62 08/01/20 21:02 76 99 08/01/20 21:00 36.8 C 64 116/66 08/01/20 20:57 74 98 08/01/20 20:54 73 115/64 08/01/20 20:52 70 98 08/01/20 20:50 63 116/62 08/01/20 20:47 62 99 08/01/20 20:45 61 124/59 L 08/01/20 20:42 67 98 08/01/20 20:38 71 123/67 08/01/20 20:37 73 99 08/01/20 20:35 71 127/68 08/01/20 20:32 68 99 08/01/20 20:28 81 124/67 08/01/20 20:27 72 99 08/01/20 20:24 61 120/62 08/01/20 20:22 82 100 08/01/20 20:18 76 124/61 08/01/20 20:17 76 100 08/01/20 20:13 75 120/63 08/01/20 20:12 75 100 08/01/20 20:08 80 120/63 08/01/20 20:07 77 100 08/01/20 20:04 77 115/66 08/01/20 20:02 74 100 08/01/20 19:57 81 131/72 99 08/01/20 19:55 68 124/71 08/01/20 19:53 82 126/77 08/01/20 19:52 71 99 08/01/20 19:51 74 120/74 08/01/20 19:50 81 119/75 08/01/20 19:47 61 131/66 98 08/01/20 19:45 60 121/69 Coding Level of Care Code None Diagnoses IUGR (intrauterine growth restriction) Encounter for induction of labor Z34.90
[2020-08-02] MEDS: LACTATED RINGER'S 1,000 ML IV PRN ×2 (07:54→16:53)
[2020-08-02] MEDS ORDERED: Nursing to Pharmacy Communication SCH (08:30)
[2020-08-02] MEDS ORDERED: LIDOCAINE HCL 2% MPF (LOCAL) 5 ML VIAL INFIL ONE (11:02)
--- NOTE | 2020-08-02 11:30 | Labor Progress Brief Note ---
Date of Service August 02, 2020 Subjective Just redosed, still uncomfortable. Assessment & Plan (1) Encounter for induction of labor: (2) IUGR (intrauterine growth restriction): Admission and Anticipated Discharge Date Admission Date: August 01, 2020 Definite cervical change. Continue current mangement. fht overall category one and reassuring. Physical Exam Constitutional: WD/WN, vitals as above Psychiatric: A+Ox3, euthymic affect Genitourinary: cx--6/90/-2, better applied toco--=q3-4min, pit at 26, mvus not quite adequate efm--140s with mod variability, accels present, variables occasional. Results & Data ([facility]) Vital Signs (Past 12 Hours) Vital Signs Temp Pulse Resp BP Pulse Ox 08/02/20 11:25 77 121/68 08/02/20 11:23 105 H 100 08/02/20 11:22 72 119/61 08/02/20 11:19 94 H 116/63 08/02/20 11:18 84 99 08/02/20 11:16 71 110/59 L 08/02/20 11:13 77 111/63 99 08/02/20 11:09 69 110/59 L 08/02/20 11:08 82 99 08/02/20 11:03 68 95 08/02/20 10:58 84 98 08/02/20 10:53 73 97 08/02/20 10:52 71 115/59 L 08/02/20 10:48 87 100 08/02/20 10:43 67 100 08/02/20 10:38 79 100 08/02/20 10:33 66 99 08/02/20 10:28 79 100 08/02/20 10:23 82 100 08/02/20 10:22 69 106/51 L 08/02/20 10:18 69 100 08/02/20 10:13 76 100 08/02/20 10:08 71 100 08/02/20 10:07 80 120/56 L 08/02/20 10:03 83 100 08/02/20 09:58 80 100 08/02/20 09:53 75 114/60 100 08/02/20 09:48 71 100 08/02/20 09:43 67 100 08/02/20 09:38 70 100 08/02/20 09:37 69 102/52 L 08/02/20 09:33 86 100 08/02/20 09:28 65 99 08/02/20 09:23 70 99 08/02/20 09:22 68 114/65 08/02/20 09:18 62 99 08/02/20 09:13 77 99 08/02/20 09:08 74 100 08/02/20 09:07 84 114/72 08/02/20 09:03 71 100 08/02/20 09:01 36.7 C 91 H 18 112/66 98 08/02/20 08:58 61 99 08/02/20 08:53 61 99 08/02/20 08:52 62 106/57 L 08/02/20 08:48 60 98 08/02/20 08:43 63 99 08/02/20 08:38 60 99 08/02/20 08:37 58 L 106/58 L 08/02/20 08:33 66 100 08/02/20 08:28 58 L 99 08/02/20 08:23 61 100 08/02/20 08:22 63 114/58 L 08/02/20 08:18 66 99 08/02/20 08:13 77 99 08/02/20 08:09 69 116/59 L 08/02/20 08:08 77 100 08/02/20 08:03 104 H 100 08/02/20 07:58 63 100 08/02/20 07:53 78 100 08/02/20 07:52 72 97/53 L 08/02/20 07:48 64 99 08/02/20 07:43 78 100 08/02/20 07:38 71 100 08/02/20 07:37 64 97/54 L 08/02/20 07:33 80 100 08/02/20 07:28 80 100 08/02/20 07:23 90 102/50 L 100 08/02/20 07:18 80 99 08/02/20 07:13 91 H 100 08/02/20 07:10 36.7 C 83 18 97/52 L 99 08/02/20 07:08 85 99 08/02/20 07:07 83 97/52 L 08/02/20 07:05 78 106/54 L 08/02/20 07:03 88 98 08/02/20 07:00 85 105/56 L 08/02/20 06:58 88 97 08/02/20 06:56 89 120/64 08/02/20 06:53 92 H 98 08/02/20 06:48 86 108/57 L 98 08/02/20 06:46 85 108/57 L 08/02/20 06:44 89 111/56 L 08/02/20 06:43 93 H 98 08/02/20 06:42 91 H 110/56 L 08/02/20 06:40 85 108/58 L 08/02/20 06:38 81 110/60 98 08/02/20 06:36 82 112/64 08/02/20 06:34 75 119/67 08/02/20 06:33 94 H 99 08/02/20 06:32 85 126/71 08/02/20 06:28 93 H 99 08/02/20 06:23 95 H 99 08/02/20 06:21 91 H 131/69 93 08/02/20 06:18 87 98 08/02/20 06:13 97 H 97 08/02/20 06:10 82 94 08/02/20 06:08 95 H 99 08/02/20 06:06 87 133/71 08/02/20 06:03 97 H 97 08/02/20 05:58 79 95 08/02/20 05:54 81 94 08/02/20 05:53 89 99 08/02/20 05:50 96 H 130/80 08/02/20 05:48 81 95 08/02/20 05:47 81 93 08/02/20 05:43 87 94 08/02/20 05:40 84 94 08/02/20 05:38 89 96 08/02/20 05:36 85 128/77 08/02/20 05:33 80 98 08/02/20 05:29 92 H 94 08/02/20 05:28 98 H 97 08/02/20 05:23 81 93 08/02/20 05:20 36.8 C 08/02/20 05:18 84 134/79 100 08/02/20 05:16 87 134/81 08/02/20 05:14 82 129/76 08/02/20 05:13 79 99 08/02/20 05:12 77 134/80 08/02/20 05:10 139/85 08/02/20 05:08 85 135/82 100 08/02/20 05:06 87 133/80 08/02/20 05:04 85 130/80 08/02/20 05:03 91 H 99 08/02/20 04:58 81 97 08/02/20 04:56 78 133/78 08/02/20 04:53 78 98 08/02/20 04:48 83 99 08/02/20 04:43 88 100 08/02/20 04:39 91 H 119/67 08/02/20 04:38 92 H 97 08/02/20 04:33 86 95 08/02/20 04:28 73 97 08/02/20 04:24 82 122/66 08/02/20 04:23 81 98 08/02/20 04:18 74 97 08/02/20 04:13 80 97 08/02/20 04:10 77 118/62 08/02/20 04:08 80 99 08/02/20 04:03 78 97 08/02/20 03:58 79 97 08/02/20 03:54 83 119/69 08/02/20 03:53 78 97 08/02/20 03:48 77 97 08/02/20 03:43 74 96 08/02/20 03:39 80 120/67 08/02/20 03:38 84 97 08/02/20 03:33 94 H 97 08/02/20 03:28 106 H 99 08/02/20 03:24 81 126/79 08/02/20 03:23 72 97 08/02/20 03:18 92 H 96 08/02/20 03:13 74 95 08/02/20 03:09 36.8 C 88 118/74 08/02/20 03:08 78 96 08/02/20 03:03 76 96 08/02/20 02:58 75 96 08/02/20 02:56 87 127/72 08/02/20 02:53 82 97 08/02/20 02:48 76 97 08/02/20 02:43 73 97 08/02/20 02:39 95 H 125/74 08/02/20 02:38 98 H 97 08/02/20 02:33 81 96 08/02/20 02:28 86 98 08/02/20 02:25 90 93 04/23/21 02:24 83 122/75 08/02/20 02:23 91 H 97 08/02/20 02:18 80 97 08/02/20 02:13 95 H 97 08/02/20 02:09 85 119/73 08/02/20 02:08 81 97 08/02/20 02:03 83 97 08/02/20 01:58 78 96 08/02/20 01:54 72 125/72 08/02/20 01:53 79 97 08/02/20 01:48 93 H 96 08/02/20 01:43 77 97 08/02/20 01:39 89 116/69 08/02/20 01:38 88 97 08/02/20 01:33 94 H 97 08/02/20 01:28 103 H 96 08/02/20 01:24 96 H 125/75 08/02/20 01:23 100 H 97 08/02/20 01:18 92 H 97 08/02/20 01:13 106 H 98 08/02/20 01:10 36.8 C 90 128/78 08/02/20 01:08 94 H 97 08/02/20 01:03 90 97 08/02/20 00:58 100 H 98 08/02/20 00:55 87 119/71 08/02/20 00:53 87 96 08/02/20 00:48 84 96 08/02/20 00:43 80 97 08/02/20 00:39 96 H 127/68 08/02/20 00:38 98 H 97 08/02/20 00:33 80 96 08/02/20 00:28 84 96 08/02/20 00:24 85 124/66 08/02/20 00:23 88 97 08/02/20 00:18 93 H 124/67 97 08/02/20 00:13 96 H 125/72 98 08/02/20 00:09 96 H 126/70 08/02/20 00:08 87 98 08/02/20 00:04 90 126/66 08/02/20 00:03 100 H 97 08/01/20 23:58 107 H 129/76 98 08/01/20 23:53 108 H 105/55 L 100 08/01/20 23:51 95 H 108/55 L 08/01/20 23:49 94 H 115/58 L 08/01/20 23:48 86 100 08/01/20 23:47 92 H 116/59 L 08/01/20 23:45 82 112/55 L 08/01/20 23:43 88 107/59 L 100 08/01/20 23:41 99 H 110/59 L 08/01/20 23:39 83 116/62 08/01/20 23:38 88 100 08/01/20 23:37 88 119/61 08/01/20 23:35 91 H 105/58 L 08/01/20 23:33 85 101/56 L 99 08/01/20 23:31 84 110/57 L 08/01/20 23:29 88 111/58 L Coding Level of Care Code None Diagnoses Encounter for induction of labor Z34.90 IUGR (intrauterine growth restriction)
[2020-08-02] MEDS ORDERED: LIDOCAINE HCL 2% 2 ML VIAL/AMP(20MG/ML) INFIL ONE (11:51)
--- NOTE | 2020-08-02 11:57 | Communication Note ---
Date of Service: August 02, 2020 Called by staff for pt c/o pain. Has epidural catheter in place. Dosed with 2% lido 5 cc + fentanyl 100mcg at 1106. Second bolus of 5 cc 1.5% lido w/epi given at 2353. If no improvement will offer pt replacement of catheter with CSE.
--- NOTE | 2020-08-02 12:08 | Labor Progress Brief Note ---
Date of Service August 02, 2020 Subjective uncomfortable, breathing through contractions. redosed her second epidural without effect. Assessment & Plan (1) IUGR (intrauterine growth restriction): (2) Encounter for induction of labor: Admission and Anticipated Discharge Date Admission Date: August 01, 2020 anesthesia aware and probably going to place third epidural. Getting closer to adequate contractions. Fetus reassuring, mostly category one with rare variable. Hopefully will be able to get her comfortable again and continue current management. Still hoping for vaginal delivery. Physical Exam Constitutional: WD/WN, vitals as above Psychiatric: A+Ox3, euthymic affect Genitourinary: cx--unchanged toco--q3-4min, pit at 28, MVUs 180s efm--140s with mod varibility, accels present, rare decels Results & Data ([facility]) Vital Signs (Past 12 Hours) Vital Signs Temp Pulse Resp BP Pulse Ox 08/02/20 12:04 82 97/54 L 08/02/20 12:03 87 100 08/02/20 12:01 81 120/59 L 08/02/20 11:58 77 100 08/02/20 11:57 83 93 08/02/20 11:55 70 125/58 L 08/02/20 11:53 73 100 08/02/20 11:52 80 115/56 L 08/02/20 11:48 83 100 08/02/20 11:46 80 110/69 08/02/20 11:43 78 116/56 L 100 08/02/20 11:40 72 117/56 L 08/02/20 11:38 71 100 08/02/20 11:37 83 130/68 08/02/20 11:34 77 122/72 08/02/20 11:33 83 84 L 08/02/20 11:31 80 115/71 08/02/20 11:28 74 126/58 L 100 08/02/20 11:25 77 121/68 08/02/20 11:23 105 H 100 08/02/20 11:22 72 119/61 08/02/20 11:19 94 H 116/63 08/02/20 11:18 84 99 08/02/20 11:16 71 110/59 L 08/02/20 11:13 77 111/63 99 08/02/20 11:09 69 110/59 L 04/23/21 11:08 82 99 08/02/20 11:03 68 95 08/02/20 10:58 84 98 08/02/20 10:53 73 97 08/02/20 10:52 71 115/59 L 08/02/20 10:48 87 100 08/02/20 10:43 67 100 08/02/20 10:38 79 100 08/02/20 10:33 66 99 08/02/20 10:28 79 100 08/02/20 10:23 82 100 08/02/20 10:22 69 106/51 L 08/02/20 10:18 69 100 08/02/20 10:13 76 100 08/02/20 10:08 71 100 08/02/20 10:07 80 120/56 L 08/02/20 10:03 83 100 08/02/20 09:58 80 100 08/02/20 09:53 75 114/60 100 08/02/20 09:48 71 100 08/02/20 09:43 67 100 08/02/20 09:38 70 100 08/02/20 09:37 69 102/52 L 08/02/20 09:33 86 100 08/02/20 09:28 65 99 08/02/20 09:23 70 99 08/02/20 09:22 68 114/65 08/02/20 09:18 62 99 08/02/20 09:13 77 99 08/02/20 09:08 74 100 08/02/20 09:07 84 114/72 08/02/20 09:03 71 100 08/02/20 09:01 36.7 C 91 H 18 112/66 98 08/02/20 08:58 61 99 08/02/20 08:53 61 99 08/02/20 08:52 62 106/57 L 08/02/20 08:48 60 98 08/02/20 08:43 63 99 08/02/20 08:38 60 99 08/02/20 08:37 58 L 106/58 L 08/02/20 08:33 66 100 08/02/20 08:28 58 L 99 08/02/20 08:23 61 100 08/02/20 08:22 63 114/58 L 08/02/20 08:18 66 99 08/02/20 08:13 77 99 04/23/21 08:09 69 116/59 L 08/02/20 08:08 77 100 08/02/20 08:03 104 H 100 08/02/20 07:58 63 100 08/02/20 07:53 78 100 08/02/20 07:52 72 97/53 L 08/02/20 07:48 64 99 08/02/20 07:43 78 100 08/02/20 07:38 71 100 08/02/20 07:37 64 97/54 L 08/02/20 07:33 80 100 08/02/20 07:28 80 100 08/02/20 07:23 90 102/50 L 100 08/02/20 07:18 80 99 08/02/20 07:13 91 H 100 08/02/20 07:10 36.7 C 83 18 97/52 L 99 08/02/20 07:08 85 99 08/02/20 07:07 83 97/52 L 08/02/20 07:05 78 106/54 L 08/02/20 07:03 88 98 08/02/20 07:00 85 105/56 L 08/02/20 06:58 88 97 08/02/20 06:56 89 120/64 08/02/20 06:53 92 H 98 08/02/20 06:48 86 108/57 L 98 08/02/20 06:46 85 108/57 L 08/02/20 06:44 89 111/56 L 08/02/20 06:43 93 H 98 08/02/20 06:42 91 H 110/56 L 08/02/20 06:40 85 108/58 L 08/02/20 06:38 81 110/60 98 08/02/20 06:36 82 112/64 08/02/20 06:34 75 119/67 08/02/20 06:33 94 H 99 08/02/20 06:32 85 126/71 08/02/20 06:28 93 H 99 08/02/20 06:23 95 H 99 08/02/20 06:21 91 H 131/69 93 08/02/20 06:18 87 98 08/02/20 06:13 97 H 97 08/02/20 06:10 82 94 08/02/20 06:08 95 H 99 08/02/20 06:06 87 133/71 08/02/20 06:03 97 H 97 08/02/20 05:58 79 95 08/02/20 05:54 81 94 08/02/20 05:53 89 99 08/02/20 05:50 96 H 130/80 08/02/20 05:48 81 95 08/02/20 05:47 81 93 08/02/20 05:43 87 94 08/02/20 05:40 84 94 08/02/20 05:38 89 96 08/02/20 05:36 85 128/77 08/02/20 05:33 80 98 08/02/20 05:29 92 H 94 08/02/20 05:28 98 H 97 08/02/20 05:23 81 93 08/02/20 05:20 36.8 C 08/02/20 05:18 84 134/79 100 08/02/20 05:16 87 134/81 08/02/20 05:14 82 129/76 08/02/20 05:13 79 99 08/02/20 05:12 77 134/80 08/02/20 05:10 139/85 08/02/20 05:08 85 135/82 100 08/02/20 05:06 87 133/80 08/02/20 05:04 85 130/80 08/02/20 05:03 91 H 99 08/02/20 04:58 81 97 08/02/20 04:56 78 133/78 08/02/20 04:53 78 98 08/02/20 04:48 83 99 08/02/20 04:43 88 100 08/02/20 04:39 91 H 119/67 08/02/20 04:38 92 H 97 08/02/20 04:33 86 95 08/02/20 04:28 73 97 08/02/20 04:24 82 122/66 08/02/20 04:23 81 98 08/02/20 04:18 74 97 08/02/20 04:13 80 97 08/02/20 04:10 77 118/62 08/02/20 04:08 80 99 08/02/20 04:03 78 97 08/02/20 03:58 79 97 08/02/20 03:54 83 119/69 08/02/20 03:53 78 97 08/02/20 03:48 77 97 08/02/20 03:43 74 96 08/02/20 03:39 80 120/67 08/02/20 03:38 84 97 08/02/20 03:33 94 H 97 08/02/20 03:28 106 H 99 08/02/20 03:24 81 126/79 08/02/20 03:23 72 97 08/02/20 03:18 92 H 96 08/02/20 03:13 74 95 08/02/20 03:09 36.8 C 88 118/74 08/02/20 03:08 78 96 08/02/20 03:03 76 96 08/02/20 02:58 75 96 08/02/20 02:56 87 127/72 08/02/20 02:53 82 97 08/02/20 02:48 76 97 08/02/20 02:43 73 97 08/02/20 02:39 95 H 125/74 08/02/20 02:38 98 H 97 08/02/20 02:33 81 96 08/02/20 02:28 86 98 08/02/20 02:25 90 93 08/02/20 02:24 83 122/75 08/02/20 02:23 91 H 97 08/02/20 02:18 80 97 08/02/20 02:13 95 H 97 08/02/20 02:09 85 119/73 08/02/20 02:08 81 97 08/02/20 02:03 83 97 08/02/20 01:58 78 96 08/02/20 01:54 72 125/72 08/02/20 01:53 79 97 08/02/20 01:48 93 H 96 08/02/20 01:43 77 97 08/02/20 01:39 89 116/69 08/02/20 01:38 88 97 08/02/20 01:33 94 H 97 08/02/20 01:28 103 H 96 08/02/20 01:24 96 H 125/75 08/02/20 01:23 100 H 97 08/02/20 01:18 92 H 97 08/02/20 01:13 106 H 98 08/02/20 01:10 36.8 C 90 128/78 08/02/20 01:08 94 H 97 08/02/20 01:03 90 97 08/02/20 00:58 100 H 98 08/02/20 00:55 87 119/71 08/02/20 00:53 87 96 08/02/20 00:48 84 96 08/02/20 00:43 80 97 08/02/20 00:39 96 H 127/68 08/02/20 00:38 98 H 97 08/02/20 00:33 80 96 08/02/20 00:28 84 96 08/02/20 00:24 85 124/66 08/02/20 00:23 88 97 08/02/20 00:18 93 H 124/67 97 08/02/20 00:13 96 H 125/72 98 08/02/20 00:09 96 H 126/70 08/02/20 00:08 87 98 Coding Level of Care Code None Diagnoses IUGR (intrauterine growth restriction) Encounter for induction of labor Z34.90
--- NOTE | 2020-08-02 14:30 | Labor Progress Brief Note ---
Date of Service August 02, 2020 Subjective comfortable Assessment & Plan (1) IUGR (intrauterine growth restriction): (2) Encounter for induction of labor: Admission and Anticipated Discharge Date Admission Date: August 01, 2020 contractions much better, mostly adequate since 12:30. Has made some change and station improved. Continue current management. Fetus reassuring. hoping for vag delivery Physical Exam Constitutional: WD/WN, vitals as above Psychiatric: A+Ox3, euthymic affect Genitourinary: cx--8/100/-1 lots of molding toco--q2-4min, pit at 28 efm--category one, rare variable Results & Data ([facility]) Vital Signs (Past 12 Hours) Vital Signs Temp Pulse Resp BP Pulse Ox 08/02/20 14:23 114 H 97 08/02/20 14:19 78 110/56 L 08/02/20 14:18 75 97 08/02/20 14:15 66 98/55 L 08/02/20 14:13 69 94 08/02/20 14:09 69 98/55 L 94 08/02/20 14:08 69 95 08/02/20 14:03 72 102/58 L 94 08/02/20 13:58 66 96/52 L 96 08/02/20 13:54 67 106/58 L 08/02/20 13:53 66 97 08/02/20 13:50 67 104/55 L 08/02/20 13:48 69 98 08/02/20 13:46 65 102/56 L 08/02/20 13:43 65 96 08/02/20 13:38 72 106/58 L 98 08/02/20 13:36 66 100/55 L 08/02/20 13:33 69 97 08/02/20 13:31 66 101/53 L 08/02/20 13:28 67 97 08/02/20 13:25 70 105/51 L 08/02/20 13:23 66 97 08/02/20 13:20 63 103/55 L 08/02/20 13:18 69 96 08/02/20 13:14 36.8 C 71 18 104/53 L 98 08/02/20 13:13 67 99 08/02/20 13:09 72 107/63 08/02/20 13:08 72 98 08/02/20 13:04 62 97/54 L 08/02/20 13:03 65 98 08/02/20 13:00 78 98/58 L 08/02/20 12:58 71 99 08/02/20 12:54 74 108/55 L 08/02/20 12:53 70 99 08/02/20 12:48 77 111/57 L 99 08/02/20 12:44 68 105/52 L 08/02/20 12:43 74 98 08/02/20 12:40 83 106/53 L 08/02/20 12:38 74 95 08/02/20 12:35 70 100/51 L 08/02/20 12:33 78 94 08/02/20 12:32 75 94 08/02/20 12:28 78 105/55 L 98 08/02/20 12:25 77 109/54 L 08/02/20 12:23 89 99 08/02/20 12:22 86 107/57 L 08/02/20 12:19 75 117/74 08/02/20 12:18 73 99 08/02/20 12:16 68 121/68 08/02/20 12:13 72 120/70 98 08/02/20 12:10 74 129/91 08/02/20 12:08 85 98 08/02/20 12:04 82 97/54 L 08/02/20 12:03 87 100 08/02/20 12:01 81 120/59 L 08/02/20 11:58 77 100 08/02/20 11:57 83 93 08/02/20 11:55 70 125/58 L 08/02/20 11:53 73 100 08/02/20 11:52 80 115/56 L 08/02/20 11:48 83 100 08/02/20 11:46 80 110/69 08/02/20 11:43 78 116/56 L 100 08/02/20 11:40 72 117/56 L 08/02/20 11:38 71 100 08/02/20 11:37 83 130/68 08/02/20 11:34 77 122/72 08/02/20 11:33 83 84 L 08/02/20 11:31 80 115/71 08/02/20 11:28 74 126/58 L 100 08/02/20 11:25 77 121/68 08/02/20 11:23 105 H 100 08/02/20 11:22 72 119/61 08/02/20 11:19 94 H 116/63 08/02/20 11:18 84 99 08/02/20 11:16 71 110/59 L 08/02/20 11:13 77 111/63 99 08/02/20 11:09 69 110/59 L 08/02/20 11:08 82 99 08/02/20 11:03 68 95 08/02/20 10:58 84 98 08/02/20 10:53 73 97 08/02/20 10:52 71 115/59 L 08/02/20 10:48 87 100 08/02/20 10:43 67 100 08/02/20 10:38 79 100 08/02/20 10:33 66 99 08/02/20 10:28 79 100 08/02/20 10:23 82 100 08/02/20 10:22 69 106/51 L 08/02/20 10:18 69 100 08/02/20 10:13 76 100 08/02/20 10:08 71 100 08/02/20 10:07 80 120/56 L 08/02/20 10:03 83 100 08/02/20 09:58 80 100 08/02/20 09:53 75 114/60 100 08/02/20 09:48 71 100 08/02/20 09:43 67 100 08/02/20 09:38 70 100 08/02/20 09:37 69 102/52 L 08/02/20 09:33 86 100 08/02/20 09:28 65 99 08/02/20 09:23 70 99 08/02/20 09:22 68 114/65 08/02/20 09:18 62 99 08/02/20 09:13 77 99 08/02/20 09:08 74 100 08/02/20 09:07 84 114/72 08/02/20 09:03 71 100 08/02/20 09:01 36.7 C 91 H 18 112/66 98 08/02/20 08:58 61 99 08/02/20 08:53 61 99 08/02/20 08:52 62 106/57 L 08/02/20 08:48 60 98 08/02/20 08:43 63 99 08/02/20 08:38 60 99 08/02/20 08:37 58 L 106/58 L 08/02/20 08:33 66 100 08/02/20 08:28 58 L 99 08/02/20 08:23 61 100 08/02/20 08:22 63 114/58 L 08/02/20 08:18 66 99 08/02/20 08:13 77 99 08/02/20 08:09 69 116/59 L 08/02/20 08:08 77 100 08/02/20 08:03 104 H 100 08/02/20 07:58 63 100 08/02/20 07:53 78 100 08/02/20 07:52 72 97/53 L 08/02/20 07:48 64 99 08/02/20 07:43 78 100 08/02/20 07:38 71 100 08/02/20 07:37 64 97/54 L 08/02/20 07:33 80 100 08/02/20 07:28 80 100 08/02/20 07:23 90 102/50 L 100 08/02/20 07:18 80 99 08/02/20 07:13 91 H 100 08/02/20 07:10 36.7 C 83 18 97/52 L 99 08/02/20 07:08 85 99 08/02/20 07:07 83 97/52 L 08/02/20 07:05 78 106/54 L 08/02/20 07:03 88 98 08/02/20 07:00 85 105/56 L 08/02/20 06:58 88 97 08/02/20 06:56 89 120/64 08/02/20 06:53 92 H 98 08/02/20 06:48 86 108/57 L 98 08/02/20 06:46 85 108/57 L 08/02/20 06:44 89 111/56 L 08/02/20 06:43 93 H 98 08/02/20 06:42 91 H 110/56 L 08/02/20 06:40 85 108/58 L 08/02/20 06:38 81 110/60 98 08/02/20 06:36 82 112/64 08/02/20 06:34 75 119/67 08/02/20 06:33 94 H 99 08/02/20 06:32 85 126/71 08/02/20 06:28 93 H 99 08/02/20 06:23 95 H 99 08/02/20 06:21 91 H 131/69 93 08/02/20 06:18 87 98 08/02/20 06:13 97 H 97 08/02/20 06:10 82 94 08/02/20 06:08 95 H 99 08/02/20 06:06 87 133/71 08/02/20 06:03 97 H 97 08/02/20 05:58 79 95 08/02/20 05:54 81 94 08/02/20 05:53 89 99 08/02/20 05:50 96 H 130/80 08/02/20 05:48 81 95 08/02/20 05:47 81 93 08/02/20 05:43 87 94 08/02/20 05:40 84 94 08/02/20 05:38 89 96 08/02/20 05:36 85 128/77 08/02/20 05:33 80 98 08/02/20 05:29 92 H 94 08/02/20 05:28 98 H 97 08/02/20 05:23 81 93 08/02/20 05:20 36.8 C 08/02/20 05:18 84 134/79 100 08/02/20 05:16 87 134/81 08/02/20 05:14 82 129/76 08/02/20 05:13 79 99 08/02/20 05:12 77 134/80 08/02/20 05:10 139/85 08/02/20 05:08 85 135/82 100 08/02/20 05:06 87 133/80 08/02/20 05:04 85 130/80 08/02/20 05:03 91 H 99 08/02/20 04:58 81 97 08/02/20 04:56 78 133/78 08/02/20 04:53 78 98 08/02/20 04:48 83 99 08/02/20 04:43 88 100 08/02/20 04:39 91 H 119/67 08/02/20 04:38 92 H 97 08/02/20 04:33 86 95 08/02/20 04:28 73 97 08/02/20 04:24 82 122/66 08/02/20 04:23 81 98 08/02/20 04:18 74 97 08/02/20 04:13 80 97 08/02/20 04:10 77 118/62 08/02/20 04:08 80 99 08/02/20 04:03 78 97 08/02/20 03:58 79 97 08/02/20 03:54 83 119/69 08/02/20 03:53 78 97 08/02/20 03:48 77 97 08/02/20 03:43 74 96 08/02/20 03:39 80 120/67 08/02/20 03:38 84 97 08/02/20 03:33 94 H 97 08/02/20 03:28 106 H 99 08/02/20 03:24 81 126/79 08/02/20 03:23 72 97 08/02/20 03:18 92 H 96 08/02/20 03:13 74 95 08/02/20 03:09 36.8 C 88 118/74 08/02/20 03:08 78 96 08/02/20 03:03 76 96 08/02/20 02:58 75 96 08/02/20 02:56 87 127/72 08/02/20 02:53 82 97 08/02/20 02:48 76 97 08/02/20 02:43 73 97 08/02/20 02:39 95 H 125/74 08/02/20 02:38 98 H 97 08/02/20 02:33 81 96 Coding Level of Care Code None Diagnoses IUGR (intrauterine growth restriction) Encounter for induction of labor Z34.90
--- NOTE | 2020-08-02 17:03 | Labor Progress Brief Note ---
Date of Service August 02, 2020 Subjective noting some discomfort again Assessment & Plan (1) IUGR (intrauterine growth restriction): Admission and Anticipated Discharge Date Admission Date: August 01, 2020 Begin second stage. Fetus reassuring. Anticipate . Physical Exam Constitutional: WD/WN, vitals as above Psychiatric: A+Ox3, euthymic affect Genitourinary: cx--c/c/+1, lots of molding toco--q2-4, pit at 30 efm--145 with mod variability, +accels, no decels Results & Data ([facility]) Vital Signs (Past 12 Hours) Vital Signs Temp Pulse Resp BP Pulse Ox 08/02/20 16:58 110 H 98 08/02/20 16:54 78 126/74 08/02/20 16:53 80 99 08/02/20 16:50 86 127/70 08/02/20 16:48 100 H 100 08/02/20 16:46 80 126/64 08/02/20 16:43 91 H 100 08/02/20 16:39 73 115/65 08/02/20 16:38 75 100 08/02/20 16:35 67 118/66 08/02/20 16:33 90 96 08/02/20 16:29 67 125/72 08/02/20 16:28 72 99 08/02/20 16:26 71 119/65 08/02/20 16:23 79 98 08/02/20 16:19 72 116/66 08/02/20 16:18 72 100 08/02/20 16:15 71 115/62 08/02/20 16:13 73 99 08/02/20 16:10 77 119/60 08/02/20 16:08 84 100 08/02/20 16:06 73 122/69 08/02/20 16:03 83 98 08/02/20 15:59 71 116/60 08/02/20 15:58 83 98 08/02/20 15:55 70 118/61 08/02/20 15:53 80 98 08/02/20 15:49 67 109/57 L 08/02/20 15:48 72 97 08/02/20 15:44 75 127/55 L 08/02/20 15:43 73 97 08/02/20 15:40 94 H 121/73 08/02/20 15:38 86 97 08/02/20 15:35 75 117/60 08/02/20 15:33 88 97 08/02/20 15:29 65 110/60 08/02/20 15:28 66 97 08/02/20 15:24 76 115/63 08/02/20 15:23 70 97 08/02/20 15:21 70 113/56 L 08/02/20 15:18 82 99 08/02/20 15:15 65 106/55 L 08/02/20 15:13 73 99 08/02/20 15:09 77 103/58 L 08/02/20 15:08 74 98 08/02/20 15:05 64 101/59 L 08/02/20 15:03 68 97 08/02/20 15:00 67 102/58 L 08/02/20 14:58 80 98 08/02/20 14:54 64 104/61 08/02/20 14:53 66 98 08/02/20 14:49 82 105/55 L 08/02/20 14:48 85 99 08/02/20 14:45 97 H 108/53 L 08/02/20 14:43 80 99 08/02/20 14:39 85 109/52 L 08/02/20 14:38 89 99 08/02/20 14:34 73 100/56 L 08/02/20 14:33 76 97 08/02/20 14:28 80 96 08/02/20 14:23 114 H 97 08/02/20 14:19 78 110/56 L 08/02/20 14:18 75 97 08/02/20 14:15 66 98/55 L 08/02/20 14:13 69 94 08/02/20 14:09 69 98/55 L 94 08/02/20 14:08 69 95 08/02/20 14:03 72 102/58 L 94 08/02/20 13:58 66 96/52 L 96 08/02/20 13:54 67 106/58 L 08/02/20 13:53 66 97 08/02/20 13:50 67 104/55 L 08/02/20 13:48 69 98 08/02/20 13:46 65 102/56 L 08/02/20 13:43 65 96 08/02/20 13:38 72 106/58 L 98 08/02/20 13:36 66 100/55 L 08/02/20 13:33 69 97 08/02/20 13:31 66 101/53 L 08/02/20 13:28 67 97 08/02/20 13:25 70 105/51 L 08/02/20 13:23 66 97 08/02/20 13:20 63 103/55 L 08/02/20 13:18 69 96 08/02/20 13:14 36.8 C 71 18 104/53 L 98 08/02/20 13:13 67 99 08/02/20 13:09 72 107/63 08/02/20 13:08 72 98 08/02/20 13:04 62 97/54 L 08/02/20 13:03 65 98 08/02/20 13:00 78 98/58 L 08/02/20 12:58 71 99 08/02/20 12:54 74 108/55 L 08/02/20 12:53 70 99 08/02/20 12:48 77 111/57 L 99 08/02/20 12:44 68 105/52 L 08/02/20 12:43 74 98 08/02/20 12:40 83 106/53 L 08/02/20 12:38 74 95 08/02/20 12:35 70 100/51 L 08/02/20 12:33 78 94 08/02/20 12:32 75 94 08/02/20 12:28 78 105/55 L 98 08/02/20 12:25 77 109/54 L 08/02/20 12:23 89 99 08/02/20 12:22 86 107/57 L 08/02/20 12:19 75 117/74 08/02/20 12:18 73 99 08/02/20 12:16 68 121/68 08/02/20 12:13 72 120/70 98 08/02/20 12:10 74 129/91 08/02/20 12:08 85 98 08/02/20 12:04 82 97/54 L 08/02/20 12:03 87 100 08/02/20 12:01 81 120/59 L 08/02/20 11:58 77 100 08/02/20 11:57 83 93 08/02/20 11:55 70 125/58 L 08/02/20 11:53 73 100 08/02/20 11:52 80 115/56 L 08/02/20 11:48 83 100 08/02/20 11:46 80 110/69 08/02/20 11:43 78 116/56 L 100 08/02/20 11:40 72 117/56 L 08/02/20 11:38 71 100 08/02/20 11:37 83 130/68 08/02/20 11:34 77 122/72 08/02/20 11:33 83 84 L 08/02/20 11:31 80 115/71 08/02/20 11:28 74 126/58 L 100 08/02/20 11:25 77 121/68 08/02/20 11:23 105 H 100 08/02/20 11:22 72 119/61 08/02/20 11:19 94 H 116/63 08/02/20 11:18 84 99 08/02/20 11:16 71 110/59 L 08/02/20 11:13 77 111/63 99 08/02/20 11:09 69 110/59 L 08/02/20 11:08 82 99 08/02/20 11:03 68 95 08/02/20 10:58 84 98 08/02/20 10:53 73 97 08/02/20 10:52 71 115/59 L 08/02/20 10:48 87 100 08/02/20 10:43 67 100 08/02/20 10:38 79 100 08/02/20 10:33 66 99 08/02/20 10:28 79 100 08/02/20 10:23 82 100 08/02/20 10:22 69 106/51 L 08/02/20 10:18 69 100 08/02/20 10:13 76 100 08/02/20 10:08 71 100 08/02/20 10:07 80 120/56 L 08/02/20 10:03 83 100 08/02/20 09:58 80 100 08/02/20 09:53 75 114/60 100 08/02/20 09:48 71 100 08/02/20 09:43 67 100 08/02/20 09:38 70 100 08/02/20 09:37 69 102/52 L 08/02/20 09:33 86 100 08/02/20 09:28 65 99 08/02/20 09:23 70 99 08/02/20 09:22 68 114/65 08/02/20 09:18 62 99 08/02/20 09:13 77 99 08/02/20 09:08 74 100 08/02/20 09:07 84 114/72 08/02/20 09:03 71 100 08/02/20 09:01 36.7 C 91 H 18 112/66 98 08/02/20 08:58 61 99 08/02/20 08:53 61 99 08/02/20 08:52 62 106/57 L 08/02/20 08:48 60 98 08/02/20 08:43 63 99 08/02/20 08:38 60 99 08/02/20 08:37 58 L 106/58 L 08/02/20 08:33 66 100 08/02/20 08:28 58 L 99 08/02/20 08:23 61 100 08/02/20 08:22 63 114/58 L 08/02/20 08:18 66 99 08/02/20 08:13 77 99 08/02/20 08:09 69 116/59 L 08/02/20 08:08 77 100 08/02/20 08:03 104 H 100 08/02/20 07:58 63 100 08/02/20 07:53 78 100 08/02/20 07:52 72 97/53 L 08/02/20 07:48 64 99 08/02/20 07:43 78 100 08/02/20 07:38 71 100 08/02/20 07:37 64 97/54 L 08/02/20 07:33 80 100 08/02/20 07:28 80 100 08/02/20 07:23 90 102/50 L 100 08/02/20 07:18 80 99 08/02/20 07:13 91 H 100 08/02/20 07:10 36.7 C 83 18 97/52 L 99 08/02/20 07:08 85 99 08/02/20 07:07 83 97/52 L 08/02/20 07:05 78 106/54 L 08/02/20 07:03 88 98 08/02/20 07:00 85 105/56 L 08/02/20 06:58 88 97 08/02/20 06:56 89 120/64 08/02/20 06:53 92 H 98 08/02/20 06:48 86 108/57 L 98 08/02/20 06:46 85 108/57 L 08/02/20 06:44 89 111/56 L 08/02/20 06:43 93 H 98 08/02/20 06:42 91 H 110/56 L 08/02/20 06:40 85 108/58 L 08/02/20 06:38 81 110/60 98 08/02/20 06:36 82 112/64 08/02/20 06:34 75 119/67 08/02/20 06:33 94 H 99 08/02/20 06:32 85 126/71 08/02/20 06:28 93 H 99 08/02/20 06:23 95 H 99 08/02/20 06:21 91 H 131/69 93 08/02/20 06:18 87 98 08/02/20 06:13 97 H 97 08/02/20 06:10 82 94 08/02/20 06:08 95 H 99 08/02/20 06:06 87 133/71 08/02/20 06:03 97 H 97 08/02/20 05:58 79 95 08/02/20 05:54 81 94 08/02/20 05:53 89 99 08/02/20 05:50 96 H 130/80 08/02/20 05:48 81 95 08/02/20 05:47 81 93 08/02/20 05:43 87 94 08/02/20 05:40 84 94 08/02/20 05:38 89 96 08/02/20 05:36 85 128/77 08/02/20 05:33 80 98 08/02/20 05:29 92 H 94 08/02/20 05:28 98 H 97 08/02/20 05:23 81 93 08/02/20 05:20 36.8 C 08/02/20 05:18 84 134/79 100 08/02/20 05:16 87 134/81 08/02/20 05:14 82 129/76 08/02/20 05:13 79 99 08/02/20 05:12 77 134/80 08/02/20 05:10 139/85 08/02/20 05:08 85 135/82 100 08/02/20 05:06 87 133/80 08/02/20 05:04 85 130/80 08/02/20 05:03 91 H 99 Coding Level of Care Code None Diagnoses IUGR (intrauterine growth restriction)
[2020-08-02] MEDS ORDERED: OXYTOCIN 30 UNITS/500 ML BAG IV PRN (17:55)
[2020-08-02] MEDS ORDERED: ACETAMINOPHEN 325 MG TAB PO PRN (17:55)
[2020-08-02] MEDS ORDERED: oxyCODONE/ACETAMINOPHEN 5mg/325mg TAB PO PRN (17:55)
--- NOTE | 2020-08-02 17:57 | Delivery Summary ---
Vaginal Delivery Summary Date of Service August 02, 2020 The patient dilated to complete and pushed to deliver a viable male infant Apgars 9 and 9 via over intact perineum. Shoulders and body delivered with ease. was vigorous and crying at . Cord was then doubly clamped and cut. Placenta delivered spontaneously and intact, three-vessel cord. Hemostasis achieved with dilute pitocin and uterine massage. Cervix and sulci intact. EBL 100 cc. Mother and baby stable recovery. Delivery of by Dr. Ruiz. Placenta delivery and inspection by Dr. Reina. Sponge count correct. Note reviewed and agree with above. Induction for IUGR requiring pitocin, epidural, iupc. Pushed well to delivery over intact perineum. INfant placed immediately on maternal abdomen for drying and attention. Nose and mouth bulb suctioned. Cord clamped and cut at one [address] life. Dr. Reina then assumed care of the patient for placenta and inspection as noted above. Vaginal Delivery Summary [facility] [place] Vaginal Delivery Charge Vaginal Delivery Codes: 35186 global code for the antepartum, delivery, and post- Delivery Type Details: [facility]
[2020-08-02] MEDS ORDERED: SUPERCREAM 0.870% 15 GM JAR EXT PRN (18:22)
[2020-08-02] MEDS ORDERED: BENZOCAINE 20% AER SPR 82.5 GM CAN EXT PRN (18:22)
[2020-08-02] MEDS ORDERED: HYDROCORTISONE ACETATE 25 MG SUPP PR PRN (18:22)
[2020-08-02] MEDS ORDERED: DIPHTHERIA/TETANUS/PERTUSSIS 0.5 ML SYR/VIAL IM ONE (18:22)
[2020-08-02] MEDS: OXYTOCIN 20 UNITS in LACTATED RINGER'S 1,000 ML IV SCH (18:29)
--- NOTE | 2020-08-02 18:34 | Anesthesia Procedure Note ---
Date of Service August 02, 2020 Anesthesia Post Epidural Note Vital Signs Vital Signs: Temp Pulse Resp BP Pulse Ox 36.8 C 82 18 113/56 L 95 08/02/20 13:14 08/02/20 18:19 08/02/20 13:14 08/02/20 18:19 08/02/20 17:48 Pain Intensity Bilateral Abdomen: Pain Intensity: 9 Notes Mental Status: alert / awake / arousable Nausea / Vomiting: adequately controlled Pain: adequately controlled Airway Patency, RR, SpO2: stable & adequate BP & HR: stable & adequate Hydration State: stable & adequate Neuraxial Anesthesia: was administered and sensory block is resolving Anesthetic Complications: no major complications apparent and Pt Satisfied with anesthetic care Epidural: Removed without complications and With tip intact
[2020-08-02] MEDS: IBUPROFEN 600 MG TAB PO PRN (19:16)
[2020-08-02] MEDS: DOCUSATE SODIUM 100 MG CAP PO SCH (20:51)
[2020-08-03] MEDS: IBUPROFEN 600 MG TAB PO PRN ×2 (03:36→12:36)
[2020-08-03] MEDS: OXYTOCIN 20 UNITS in LACTATED RINGER'S 1,000 ML IV SCH (07:18)
--- NOTE | 2020-08-03 07:27 | Obstetrical Progress Note ---
Date of Service <Sydni Lorenz DO - Last Filed: 08/03/20 07:27> August 03, 2020 Assessment & Plan <Sydni Lorenz DO - Last Filed: 08/03/20 07:27> (1) state: Grisel is a 30 yo PPD#1 s/p after IOL due to IUGR at 37+1 - PNL: Rh pos, RI, GBS neg, COVID neg - Feels well today. Eating well, voiding well, ambulating well. - Pain well controlled with ibuprofen 600mg Q4H PRN - Routine care -- OOB, ambulation, diet progression as tolerated - After discharge will have 6 week follow-up with Dr. Ruiz. Subjective <Sydni Lorenz DO - Last Filed: 08/03/20 07:27> Grisel Lopez is a 30 y/o female who is PPD #1 following spontaneous vaginal delivery after IOL due to IUGR at 37+1 weeks. She reports feeling well overall this morning. Minimal abdominal cramping and 3/10 pain well managed on analgesics. Voiding without dysuria. Tolerating meals overnight without difficulty. Patient has been able to ambulate some. She is passing gas. Has persistent lochia with some improvement this morning. Currently . Review of Systems Denies fever or chills. Denies shortness of breath or cough. Denies chest pain. Denies breast pain. Denies dysuria. Denies leg pain or leg swelling. Denies headache or changes in vision. Physical Exam <Sydni Lorenz DO - Last Filed: 08/03/20 07:27> General: Alert, oriented. No acute distress. Cardiac: Regular rate and rhythm. No murmurs. Respiratory: Clear to auscultation bilaterally a/p, no wheezes/rales/rhonchi. No increased work of breathing. Symmetrical chest rise. No respiratory distress. Abdomen: Soft, nontender, nondistended. Bowel sounds present. Uterus: Uterine fundus firm, palpable 1 cm below umbilicus. Lower Extremities: No lower extremity edema or swelling. No deep calf pain. Satish's negative bilaterally. Results & Data ([facility]) <Sydni Lorenz DO - Last Filed: 08/03/20 07:27> Vital Signs (Past 12 Hours) Vital Signs Temp Pulse Pulse Resp BP BP 08/03/20 03:35 36.6 C 67 18 114/79 08/02/20 23:07 36.5 C 66 18 111/68 08/02/20 20:45 36.7 C 77 18 129/76 08/02/20 19:50 77 18 130/77 08/02/20 19:49 77 130/77 08/02/20 19:34 75 131/71 <Jeanne Ruiz MD, FACOG - Last Filed: 08/03/20 07:36> Co-Signing Physician Notes Resident Physician Supervision Note: I interviewed and examined the patient. Discussed with Dr. Lorenz and agree with findings and plan as documented in the note. Any exceptions or clarifications are listed here: Doing well. Routine care. Given IUGR and first baby, recommend staying until tomorrow for teaching and evaluation of breast feeding and the baby. Documented By: Jeanne Ruiz MD, FACOG Resident Activity Tracking <Sydni Lorenz, - Last Filed: 08/03/20 07:27> Resident Involvement: Resident Care Provided Care Provided: OB Delivery
[2020-08-03] MEDS: DOCUSATE SODIUM 100 MG CAP PO SCH ×2 (08:35→20:57)
--- NOTE | 2020-08-04 07:19 | Obstetrical Progress Note ---
Date of Service August 04, 2020 Assessment & Plan (1) state: PPD#2, d/c instructions reviewed Subjective Ambulation: ambulating normally Voiding: no voiding problems Passing Gas:: Yes Diet Tolerance:: regular diet Lochia:: Small Feeding Type:: breast feeding Physical Exam Constitutional WD/WN, vitals as above Eyes PERRL, conjunctivae normal, anicteric sclerae Neck normal visual inspection Respiratory normal respiratory effort and able to speak in complete sentences; no respiratory distress and no labored breathing Cardiovascular Rate/Rhythm: regular rate and regular rhythm Extremities: no edema Chest (Breasts) Chest: normal inspection of chest Gastrointestinal (Abdomen) Inspection/Auscultation: abdomen normal to inspection Soft, postgravid Psychiatric A+Ox3, euthymic affect Genitourinary OB Exam Abdomen: + fundal height Fundus: + firm and + relation to umbilicus (fundus just below umbilicus); not tender Results & Data ([facility]) Vital Signs (Past 12 Hours) Vital Signs Temp Pulse Resp BP Pulse Ox 08/03/20 23:30 97.5 F L 70 17 106/72 98 08/03/20 20:00 97.7 F 76 16 117/79 97
[2020-08-04] MEDS: DOCUSATE SODIUM 100 MG CAP PO SCH (08:35)
== END 2020-08-04 14:55 | disposition home or self-care (01) | DRG 807 ==
LOC: 4S1 07:23 → 4S2 08-02 20:19